=== PATIENT | female | born 1990 | race Caucasian/White ===

== ENCOUNTER 2017-12-24 10:40 | Emergency (ER) | payer OTHER ==
[~2017-12-24] VITALS: Ht 152.4 cm; Wt 72.0 kg
--- NOTE | 2017-12-24 11:20 | PD ---
HPI Chief Complaint Abdominal cramping Date Seen: December 24, 2017 Travel History International Travel<30 Days: No Contact w/Intl Traveler<30Days: No Known Affected Area: No History of Present Illness HPI The patient is a pleasant 27 year old at 20/6 weeks gestation presents to OB triage due to lower abdominal cramping. The patient states her cramping pain began this morning dm. 07:00. She states she took tylenol, placed a heating pad on her abdomen, and took a hot shower however her cramping pain did not improve. She states she felt her pain increased to a 10/10 and she was advised to go to the OB ED for evaluation. The patient reports being ill with viral URI symptoms over the weekend. She states those symptoms are improving however still has a cough. She denies any recent fevers. The patient denies any sharp abdominal pain. Reports the cramping pain is intermittent. She denies it feeling as typical contractions. She denies leakage or gush of fluid. Denies abnormal vaginal discharge. Denies bleeding or spotting. Endorses +FM. Denies urinary complaints; denies dysuria, pyuria, gross hematuria. Denies sharp or new back pain. Denies diarrhea, constipation, nausea or vomiting. Para: 1 : 3 Miscarriage: 1 History Past Medical History Narrative Medical Reportedly healthy Obstetric History Obstetric History One previous early miscarriage One previous term cesarian Past Surgical History Narrative Surgical x1 Family History Family History: Negative Social History Alcohol Use: No Tobacco Use: No Substance Abuse: No Allergies-Medications (Allergen,Severity, Reaction): Coded Allergies: No Known Allergies (Verified Allergy, Unknown, 12/24/17) Home Meds Active Scripts Acetaminophen-Codeine (Tylenol-Codeine #3) 300-30 mg Tab, 1 TAB PO Q6H Y for PAIN, #12 TAB 0 Refills Prov:Toñito Le MD R2 12/24/17 Reported Medications Vit,Calc76/Iron/Folic (Pnv 29-1 Tablet) 29 Mg Iron-1 Mg Tablet, 1 TAB PO campos 12/24/17 Review of Systems Except as stated in HPI: all other systems reviewed are Neg Physical Exam Narrative GENERAL: Well-nourished, well-developed patient. SKIN: Warm and dry. HEAD: Normocephalic and atraumatic. EYES: No scleral icterus. No injection or drainage. ENT: No nasal drainage noted. Mucous membranes pink. Airway patent. NECK: Supple, trachea midline. No JVD. CARDIOVASCULAR: Regular rate and rhythm without murmurs, gallops, or rubs. RESPIRATORY: Breath sounds equal bilaterally. No accessory muscle use. ABDOMEN/GI: Abdomen soft, nontender throughout, bowel sounds present, no rebound tenderness, no guarding Gravid to 21 weeks size GENITOURINARY: External Genitalia: intact and normal in appearance Cervix: [-] Dilatation: closed Effacement: thick Station: -3 Presentation: [-] Membranes: [-] Uterine Contractions: no contractions on tocometer FHT's: Category: [-] Baseline: 140s Reactive: [-] Variability: moderate Decels: [-] EXTREMITIES: No cyanosis or edema. BACK: Nontender without obvious deformity. No CVA tenderness. NEUROLOGICAL: Awake and alert. Motor and sensory grossly within normal limits. Normal speech. Data Data Vital Signs Reviewed: Yes [facility] Medical Record Reviewed: Yes Plan 27 year old at 20/6 weeks gestation being evaluated due to lower abdominal cramping pain. - Consider pain due to round ligament pain, soft tissue strain, blood pressure is within normal limits, exam not suspicious for appendicitis or other concerning intraabdominal etiology - No report of vaginal bleeding - Urine dip is normal - Patient given Demerol 50 mg IM as well as Phenergan 25 mg IM with improvement of her pain however patient was still concerned that her pain had not subsided - CBC and CMP within normal limits - Patient given additional 25 mcg IV fentanyl with improvement of her pain to a 2-3/10 - No contractions on tocometer - Will admit to observation for continued monitoring - Keep NPO until pain is further improved markw Dr. Fulton Diagnosis Diagnosis: Primary Impression: Round ligament pain Toñito Le MD R2 December 24, 2017 11:20
[2017-12-24] MEDS ORDERED: PROMETHAZINE INJ 25 MG/ML VIAL IM ONE (11:30)
[2017-12-24] MEDS ORDERED: MEPERIDINE HCL 50 MG/ML VIAL IM ONE (11:30)
[2017-12-24] MEDS ORDERED: LACTATED RINGER'S 1000 ML INJ 1,000 ML IV ONE (12:15)
[2017-12-24] MEDS ORDERED: PREN1TAB45 PO (12:37)
[2017-12-24 12:55] LABS: AUTOMATED NEUTROPHIL # 8.3 TH/MM3 (1.8-7.7); BASOPHIL % 0.1 % (0.0-2.0); EOSINOPHIL # 0.1 TH/MM3 (0-0.4); EOSINOPHIL % 0.8 % (0.0-4.0); HEMATOCRIT 35.5 % (35.0-46.0); HEMOGLOBIN 12.2 GM/DL (11.6-15.3); LYMPH % 8.5 % (9.0-44.0); LYMPHOCYTE # 0.8 TH/MM3 (1.0-4.8); MEAN CELL VOLUME 90.7 FL (80.0-100.0); MEAN CORPUSCULAR HEMOGLOBIN 31.1 PG (27.0-34.0); MEAN CORPUSCULAR HGB CONC 34.3 % (32.0-36.0); MEAN PLATELET VOLUME 9.1 FL (7.0-11.0); MONO % 4.5 % (0.0-8.0); MONOCYTE # 0.4 TH/MM3 (0-0.9); NEUT % 86.1 % (16.0-70.0); PLATELET COUNT 157 TH/MM3 (150-450); RED BLOOD COUNT 3.92 MIL/MM3 (4.00-5.30); RED CELL DISTRIBUTION WIDTH 13.6 % (11.6-17.2); WHITE BLOOD COUNT 9.7 TH/MM3 (4.0-11.0)
[2017-12-24 13:08] LABS: ALBUMIN 3.1 GM/DL (3.4-5.0); ALT (GPT) 17 U/L (10-53); AST (GOT) 9 U/L (15-37); BICARBONATE 25.6 MEQ/L (21.0-32.0); BLOOD UREA NITROGEN 8 MG/DL (7-18); CALCIUM 8.7 MG/DL (8.5-10.1); CHLORIDE 105 MEQ/L (98-107); GLOMERULAR FILTRATION RATE 148 ML/MIN (>89); GLUCOSE,RANDOM 80 MG/DL (74-106); SODIUM (NA) 140 MEQ/L (136-145)
[2017-12-24 13:10] LABS: ALKALINE PHOSPHATASE 58 U/L (45-117); TOTAL BILIRUBIN ADULT 0.2 MG/DL (0.2-1.0); TOTAL PROTEIN 6.6 GM/DL (6.4-8.2)
[2017-12-24] MEDS ORDERED: TYLETAB34 PO (13:47)
[2017-12-24] MEDS ORDERED: ONDANSETRON ODT 4 MG TAB PO PRN ×2 (14:00→18:15)
[2017-12-24] MEDS ORDERED: ACETAMINOPHEN 325 MG TAB PO PRN (14:00)
[2017-12-24] MEDS ORDERED: SODIUM CHLORIDE 0.9% FLUSH 10 ML FLUSH IV FLUSH PRN (14:00)
[2017-12-24] MEDS: SODIUM CHLORIDE 0.9% FLUSH 10 ML FLUSH IV FLUSH SCH ×2 (14:00→21:06)
[2017-12-24] MEDS ORDERED: CALCIUM CARBONATE 500 MG CHEWABLE TAB CHEW PRN (15:15)
[2017-12-24 15:37] LABS: BILIRUBIN, URINE NEG (NEG); BLOOD, URINE NEG (NEG); GLUCOSE,URINE NEG (NEG); KETONE, URINE NEG (NEG); NITRITE,URINE NEG (NEG); PH, URINE 6.5 (5.0-8.5); URINE COLOR YELLOW (YELLW/STRAW); URINE LEUKOCYTE ESTERASE NEG (NEG)
[2017-12-24 15:49] LABS: SQUAMOUS EPITHELIAL CELL URINE 4 /hpf (0-5)
[2017-12-24] MEDS ORDERED: LORazepam 2 MG/ML VIAL IV ONE (17:15)
--- NOTE | 2017-12-24 18:11 | PD.OB.ANTE ---
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 27 yo at 20 and 6/7 weeks. History of prior term section. No fever, chills, Pain doesn't radiate except to back if cramp severe. Vomited during initial evaluation and just now. No diarrhea Did have normal bowel movement in last hour. Cannot attach pain to any activity, lessens in left semi-orta position. Objective Lab & Micro Results Test 12/24/17 12:13 12/24/17 13:00 White Blood Count 9.7 TH/MM3 Red Blood Count 3.92 MIL/MM3 Hemoglobin 12.2 GM/DL Hematocrit 35.5 % Mean Corpuscular Volume 90.7 FL Mean Corpuscular Hemoglobin 31.1 PG Mean Corpuscular Hemoglobin Concent 34.3 % Red Cell Distribution Width 13.6 % Platelet Count 157 TH/MM3 Mean Platelet Volume 9.1 FL Neutrophils (%) (Auto) 86.1 % Lymphocytes (%) (Auto) 8.5 % Monocytes (%) (Auto) 4.5 % Eosinophils (%) (Auto) 0.8 % Basophils (%) (Auto) 0.1 % Neutrophils # (Auto) 8.3 TH/MM3 Lymphocytes # (Auto) 0.8 TH/MM3 Monocytes # (Auto) 0.4 TH/MM3 Eosinophils # (Auto) 0.1 TH/MM3 Basophils # (Auto) 0.0 TH/MM3 CBC Comment DIFF FINAL Differential Comment Blood Urea Nitrogen 8 MG/DL Creatinine 0.50 MG/DL Random Glucose 80 MG/DL Total Protein 6.6 GM/DL Albumin 3.1 GM/DL Calcium Level 8.7 MG/DL Alkaline Phosphatase 58 U/L Aspartate Amino Transf (AST/SGOT) 9 U/L Alanine Aminotransferase (ALT/SGPT) 17 U/L Total Bilirubin 0.2 MG/DL Sodium Level 140 MEQ/L Potassium Level 3.7 MEQ/L Chloride Level 105 MEQ/L Carbon Dioxide Level 25.6 MEQ/L Anion Gap 9 MEQ/L Estimat Glomerular Filtration Rate 148 ML/MIN Urine Color YELLOW Urine Turbidity CLEAR Urine pH 6.5 Urine Specific [place] 1.021 Urine Protein NEG mg/dL Urine Glucose (UA) NEG mg/dL Urine Ketones NEG mg/dL Urine Occult Blood NEG Urine Nitrite NEG Urine Bilirubin NEG Urine Urobilinogen 0.2 MG/DL Urine Leukocyte Esterase NEG Urine RBC 1 /hpf Urine WBC 1 /hpf Urine Squamous Epithelial Cells 4 /hpf Microscopic Urinalysis Comment CULT NOT INDICATED Urine Opiates Screen NEG Urine Barbiturates Screen NEG Urine Amphetamines Screen NEG Urine Benzodiazepines Screen NEG Urine Cocaine Screen NEG Urine Cannabinoids Screen NEG Chlamydia trachomatis DNA (PCR) NOT DETECTED Neisseria gonorrhoeae DNA (PCR) NOT DETECTED Physical Exam GENERAL: Well-nourished, well-developed patient. CARDIOVASCULAR: Regular rate and rhythm without murmurs, gallops, or rubs. RESPIRATORY: Breath sounds equal bilaterally. No accessory muscle use. ABDOMEN/GI: Abdomen soft, non-tender. Fundus: at umbilicus GENITOURINARY: External Genitalia: intact and normal in appearance FHTs 140s EXTREMITIES: No cyanosis or edema, non-tender, without signs of DVT. Assessment and Plan Assessment and Plan ultrasound appropriate for gestational age posterior placenta good fluid and tone Impression: severe mid abdominal (not quite mid epigastric pain) with emesis has been given fentanyl, ativan, demerol and phenergan unlikely to be gall bladder, appendix or renal stone does have left shift possible gastro enteritis possible scar from prior section pulling on anterior abdominal wall PLAN Manage pain tonight -- can use NSAIDS at this age repeat CBC with diff in am emperic antibiotic for possible GI bug (likely viral but could be listeria, campylobacter...) Razia Martinez MD December 24, 2017 18:11
[2017-12-24] MEDS ORDERED: KETOROLAC TROMETHAMINE 30 MG/ML (IVP) VIAL IV PUSH PRN (18:15)
[2017-12-24] MEDS ORDERED: ACETAMINOPHEN 1000 MG/100 ML 100 ML IV ONE (18:15)
[2017-12-24] MEDS: metroNIDAZOLE 500 MG TAB PO SCH (22:02)
[2017-12-25 05:53] LABS: AUTOMATED NEUTROPHIL # 4.7 TH/MM3 (1.8-7.7); BASOPHIL % 0.1 % (0.0-2.0); EOSINOPHIL # 0.1 TH/MM3 (0-0.4); EOSINOPHIL % 0.9 % (0.0-4.0); HEMATOCRIT 30.5 % (35.0-46.0); HEMOGLOBIN 10.8 GM/DL (11.6-15.3); LYMPH % 12.3 % (9.0-44.0); LYMPHOCYTE # 0.7 TH/MM3 (1.0-4.8); MEAN CELL VOLUME 90.3 FL (80.0-100.0); MEAN CORPUSCULAR HGB CONC 35.4 % (32.0-36.0); MEAN PLATELET VOLUME 9.3 FL (7.0-11.0); MONO % 5.4 % (0.0-8.0); MONOCYTE # 0.3 TH/MM3 (0-0.9); NEUT % 81.3 % (16.0-70.0); PLATELET COUNT 145 TH/MM3 (150-450); RED BLOOD COUNT 3.37 MIL/MM3 (4.00-5.30); RED CELL DISTRIBUTION WIDTH 13.2 % (11.6-17.2); WHITE BLOOD COUNT 5.7 TH/MM3 (4.0-11.0)
[2017-12-25] MEDS: metroNIDAZOLE 500 MG TAB PO SCH (06:15)
--- NOTE | 2017-12-25 08:12 | PD.OB.ANTE ---
Subjective Interval History 27 yo at 21 weeks here for symptoms of severe mid abdominal pain, intractable yesterday with emesis and completely resolved this am. no fever, chills no diarrhea Objective Lab & Micro Results Test 12/24/17 12:13 12/24/17 13:00 12/25/17 05:03 White Blood Count 9.7 TH/MM3 5.7 TH/MM3 Red Blood Count 3.92 MIL/MM3 3.37 MIL/MM3 Hemoglobin 12.2 GM/DL 10.8 GM/DL Hematocrit 35.5 % 30.5 % Mean Corpuscular Volume 90.7 FL 90.3 FL Mean Corpuscular Hemoglobin 31.1 PG 32.0 PG Mean Corpuscular Hemoglobin Concent 34.3 % 35.4 % Red Cell Distribution Width 13.6 % 13.2 % Platelet Count 157 TH/MM3 145 TH/MM3 Mean Platelet Volume 9.1 FL 9.3 FL Neutrophils (%) (Auto) 86.1 % 81.3 % Lymphocytes (%) (Auto) 8.5 % 12.3 % Monocytes (%) (Auto) 4.5 % 5.4 % Eosinophils (%) (Auto) 0.8 % 0.9 % Basophils (%) (Auto) 0.1 % 0.1 % Neutrophils # (Auto) 8.3 TH/MM3 4.7 TH/MM3 Lymphocytes # (Auto) 0.8 TH/MM3 0.7 TH/MM3 Monocytes # (Auto) 0.4 TH/MM3 0.3 TH/MM3 Eosinophils # (Auto) 0.1 TH/MM3 0.1 TH/MM3 Basophils # (Auto) 0.0 TH/MM3 0.0 TH/MM3 CBC Comment DIFF FINAL DIFF FINAL Differential Comment Blood Urea Nitrogen 8 MG/DL Creatinine 0.50 MG/DL Random Glucose 80 MG/DL Total Protein 6.6 GM/DL Albumin 3.1 GM/DL Calcium Level 8.7 MG/DL Alkaline Phosphatase 58 U/L Aspartate Amino Transf (AST/SGOT) 9 U/L Alanine Aminotransferase (ALT/SGPT) 17 U/L Total Bilirubin 0.2 MG/DL Sodium Level 140 MEQ/L Potassium Level 3.7 MEQ/L Chloride Level 105 MEQ/L Carbon Dioxide Level 25.6 MEQ/L Anion Gap 9 MEQ/L Estimat Glomerular Filtration Rate 148 ML/MIN Urine Color YELLOW Urine Turbidity CLEAR Urine pH 6.5 Urine Specific [place] 1.021 Urine Protein NEG mg/dL Urine Glucose (UA) NEG mg/dL Urine Ketones NEG mg/dL Urine Occult Blood NEG Urine Nitrite NEG Urine Bilirubin NEG Urine Urobilinogen 0.2 MG/DL Urine Leukocyte Esterase NEG Urine RBC 1 /hpf Urine WBC 1 /hpf Urine Squamous Epithelial Cells 4 /hpf Microscopic Urinalysis Comment CULT NOT INDICATED Urine Opiates Screen NEG Urine Barbiturates Screen NEG Urine Amphetamines Screen NEG Urine Benzodiazepines Screen NEG Urine Cocaine Screen NEG Urine Cannabinoids Screen NEG Chlamydia trachomatis DNA (PCR) NOT DETECTED Neisseria gonorrhoeae DNA (PCR) NOT DETECTED Physical Exam GENERAL: Well-nourished, well-developed patient. CARDIOVASCULAR: Regular rate and rhythm without murmurs, gallops, or rubs. RESPIRATORY: Breath sounds equal bilaterally. No accessory muscle use. ABDOMEN/GI: Abdomen soft, non-tender. Fundus:20 GENITOURINARY: External Genitalia: intact and normal in appearance FHT's: 140s EXTREMITIES: No cyanosis or edema, non-tender, without signs of DVT. Assessment and Plan Assessment and Plan ultrasound appropriate for gestational age posterior placenta good fluid and tone Impression: severe mid abdominal (not quite mid epigastric pain) with emesis has been given fentanyl, ativan, demerol and phenergan unlikely to be gall bladder, appendix or renal stone does have left shift possible gastro enteritis possible scar from prior section pulling on anterior abdominal wall PLAN Manage pain tonight -- can use NSAIDS at this age repeat CBC with diff in am emperic antibiotic for possible GI bug (likely viral but could be listeria, campylobacter...) 12/24/17 symptomology resolved, speaks against appendicitis, GB or other dangerous condition likely GI and transient home with no medications follow up in office this week Razia Martinez MD December 25, 2017 08:12
--- NOTE | 2017-12-25 08:13 | HHI.DCPOC ---
Discharge Care Plan Report Symptoms to Your Doctor -Temperature above 100.5 degrees -Redness, of incision or excessive or foul smelling drainage -Unusual pain or calf pain -Increased vaginal bleeding -Painful or difficulty urinating -Feelings of extreme sadness or anxiety after 2 weeks Goals to Promote Your Health * To prevent worsening of your condition and complications * To maintain your health at the optimal level Directions to Meet Your Goals Take your medications as prescribed Follow your dietary instruction Follow activity as directed Ensure plenty of rest for recovery Drink fluids for hydration Keep your appointments as scheduled Take your immunizations and boosters as scheduled If your symptoms worsen call your PCP, if no PCP go to Urgent Care Center or Emergency Room Smoking is Dangerous to Your Health. Avoid second hand smoke Call the 24-hour crisis hotline for domestic abuse at Razia Martinez MD December 25, 2017 08:13
[2017-12-25] MEDS ORDERED: MULTIVIT/MIN/PREN/FOL AC/IRON PRENATAL TAB PO SCH (09:00)
== END 2017-12-25 10:28 | disposition home or self-care (01) ==
LOC: HOBED 10:40 → H2EA 13:57
PROVIDERS: ADMIT Obstetrics & Gynecology; ATTEND Obstetrics & Gynecology
DX: O26.892 Other specified pregnancy related conditions, second trimester (principal); R10.2 Pelvic and perineal pain; R05 Cough; Z3A.20 20 weeks gestation of pregnancy
CPT/HCPCS: 76805; 80053; 80307; 81001; 85025; 87491; 87591; 96374; 96375; 99285; G0378; G0481; J0131; J1885; J2060; J2175; J2550; J3010; J7120

== ENCOUNTER 2018-04-29 09:30 | Inpatient (IN) ==
[2018-04-29] MEDS ORDERED: Sodium Chlor 0.9% Inj 500 ML IV.SIG PRN (11:04)
[2018-04-29] MEDS ORDERED: Naloxone Inj 0.4 MG/ML Vial IV.PUSH PRN (11:04)
[2018-04-29] MEDS ORDERED: fentaNYL Citrate Inj 100 MCG/2 ML Ampul IV.PUSH PRN ×2 (11:04)
[2018-04-29] MEDS ORDERED: Sod Chloride 0.9% Inj 1,000 ML IV.CONT PRN (11:04)
[2018-04-29] MEDS ORDERED: Citric Acid/Sodium Citrate Liq 30 ML UDC PO SCH (11:15)
[2018-04-29] MEDS ORDERED: Oxytocin 30 Units/500ml Premix 30 UNITS/500 ML BAG IV.SIG ONE (11:30)
[2018-04-29] MEDS ORDERED: Oxytocin 30 Units/500ml Premix 30 UNITS/500 ML BAG IV.SIG PRN (12:30)
[2018-04-29 12:42] LABS: Baso % (Auto) 0.1 % (0.0-2.0); Eos # (Auto) 0.1 th/mm3 (0.0-0.4); Eos % (Auto) 0.9 % (0.0-4.0); Hematocrit 32.4 % (35.0-46.0); Hemoglobin 10.7 gm/dL (11.6-15.3); Lymph % (Auto) 15.7 % (9.0-44.0); Mean Corpuscular HGB Conc 33.1 % (32.0-36.0); Mean Corpuscular Volume 84.5 fL (80.0-100.0); Mean Platelet Volume 10.2 fL (7.0-11.0); Mono # (Auto) 0.4 th/mm3 (0.0-0.9); Mono % (Auto) 6.5 % (0.0-8.0); Neut # (Auto) 5.1 th/mm3 (1.8-7.7); Neut % (Auto) 76.8 % (16.0-70.0); Platelet Count 168 th/mm3 (150-450); Red Blood Count 3.83 mil/mm3 (4.00-5.30); White Blood Count 6.7 th/mm3 (4.0-11.0)
[2018-04-29 13:00] LABS: Bacteria,Urine Occasional /hpf; Bilirubin,Urine Negative (Negative); Color,Urine Yellow (Yellw/Straw); Glucose,Urine (UA) Negative (Negative); Leukocyte Esterase,Urine Moderate (Negative); Mucus,Urine Few /lpf (Occasional); Nitrite,Urine Negative (Negative); Specific Gravity,Urine 1.023 (1.002-1.035); Squamous Epithelial Cell,Urine 25 /hpf (0-5)
[2018-04-29 13:05] LABS: Clarity,Urine Hazy (Clear)
[2018-04-29 13:10] LABS: Amphetamine Urine With Conf Neg (Neg); Benzodiazepine Urine With Conf Neg (Neg)
[2018-04-29 13:21] LABS: Alanine Aminotransferase 22 U/L (10-53); Albumin 2.5 g/dL (3.4-5.0); Anion Gap 9 meq/L (5-15); Aspartate Aminotransferase 23 U/L (15-37); Blood Urea Nitrogen 10 mg/dL (7-18); Calcium 8.8 mg/dL (8.5-10.1); Chloride 109 meq/L (98-107); Glomerular Filtration Rate Greater Than 89 mL/min (>89); Glucose,Random 68 mg/dL (74-106); Potassium 4.3 meq/L (3.5-5.1); Sodium 142 meq/L (136-145)
[2018-04-29 13:22] LABS: Alkaline Phosphatase 139 U/L (45-117); Total Protein 6.3 g/dL (6.4-8.2)
[2018-04-29] MEDS ORDERED: Acetaminophen 325 MG Tablet PO PRN (15:53)
[2018-04-29] MEDS ORDERED: fentaNYL 2MCG-Bupiv 0.125% Epi 150 ML EPIDURAL ONE (20:41)
[2018-04-29] MEDS ORDERED: Lidocaaine 1.5%/Epinephrine 1:200,000 PF Inj 5 ML Amp ONE (20:44)
[2018-04-29] MEDS ORDERED: Lidocaine PF 1% Inj 5 ML Vial ONE (20:45)
--- NOTE | 2018-04-29 21:14 | P.HPOB ---
History of Present Illness Service: labor and delivery Primary Care Physician: No Primary Care Physician Chief Complaint: getational hypertension at 38 6/7 weeks History of Present Illness: 27 yo mwf at 38 6/7 weeks EGA, seen in office today. BP 148/82 1+ protein and significant edema both dependent and nondependent. No LOPEZ, nausea, vomiting or blurred vision. GFM. No leaking or bleeding. Hx of section x 1 18 months ago for elective induction with failure to progress at [facility]. desires TOLAC. Cervix 2-3/50/2 in office. Pelvis clinically adequate. GBS- No PTL, GDM Does have history of mild hypertension. Weeks Gestation:: 39 - Inpatient Certification I certify that the inpatient services were ordered in accordance with Medicare regulations governing the order. This includes certification that hospital inpatient services are reasonable and necessary and in the case of services not specified as inpatient-only under 42 CFR 419.22(n), that they are appropriately provided as inpatient services in accordance to with the 2-midnight benchmark under 43 CFR 412.3(e) Estimated Total Length of Stay (Days): 3 Plans for Post Hospital Care: Home Review of Systems All other systems reviewed negative except as stated in HPI PMFSH - Travel History Recent Travel in the [place] Within the Last 8 Weeks: No Recent Travel Out of the Country Within the Last 8 Weeks: No Medications and Allergies Active Medications: Active Medications Acetaminophen (Tylenol) 650 mg PO Q4H PRN PRN Reason: HEADACHE Last Admin: 04/29/18 16:01 Dose: 650 mg Citric Acid/Sodium Citrate (Sodium Citrate/Citric Acid Liq) 30 ml PO ORNAMENTER HAND [facility] Stop: 05/03/18 11:14 Fentanyl Citrate (Fentanyl Inj) 50 mcg IV.PUSH Q1H PRN PRN Reason: Pain Scale 3 - 5 Fentanyl Citrate (Fentanyl Inj) 100 mcg IV.PUSH Q1H PRN PRN Reason: PAIN SCALE 6 TO 10 Last Admin: 04/29/18 19:56 Dose: 100 mcg Lactated Ringer's (Lr 1000 Ml Inj) 1,000 mls @ 125 mls/hr IV.CONT .Q8H [facility] Last Admin: 04/29/18 11:45 Dose: 125 mls/hr Lactated Ringer's (Lr 1000 Ml Inj) 1,000 mls @ 3,000 mls/hr IV.SIG UNSCH PRN PRN Reason: compromise or epidural Sodium Chloride (Ns Inj) 500 mls @ 1,000 mls/hr IV.SIG UNSCH PRN PRN Reason: SEE LABEL COMMENTS Sodium Chloride (Ns Inj) 1,000 mls @ 100 mls/hr IV.CONT .Q10H PRN PRN Reason: SEE LABEL COMMENTS Oxytocin (Pitocin 30 Units/Ns 500 Ml Premix) 30 units in 500 mls @ 1 mls/hr IV.SIG TITRATE PRN; Protocol PRN Reason: For induction of labor Last Admin: 04/29/18 12:33 Dose: 1 milliunit/min, 1 mls/hr Lidocaine HCl (Xylocaine 1% Inj) 0.1 ml I-DERMAL PRN PRN PRN Reason: For IV start Stop: 05/02/18 11:03 Lidocaine HCl (Xylocaine 1% Inj) 10 ml INFILTRATN PRN PRN PRN Reason: For episiotomy repair Stop: 05/01/18 11:03 Mineral Oil (Muri-Lube Oil) 10 ml TOPICAL PRN PRN PRN Reason: PRN perineal massage Naloxone HCl (Narcan Inj) 0.1 mg IV.PUSH Q2M PRN PRN Reason: for opiate reversal Vit/Calcium/Iron/Folic Ac (Stuartnatal Plus 3) 1 tab PO DAILY KEARA Allergies Allergy/AdvReac Type Severity Reaction Status Date / Time No Known Allergies Allergy Verified 04/29/18 11:30 Home Medications Medication Instructions Recorded Confirmed Type Calcium 500 1 tab PO DAILY 04/29/18 04/29/18 History ferrous sulfate [Iron (ferrous 1 tab PO DAILY 04/29/18 04/29/18 History sulfate)] vit-iron fum-folic ac 1 tab PO DAILY 04/29/18 04/29/18 History [ Vitamin] Exam Vital signs: Vital Signs 04/29/18 10:15 04/29/18 11:56 04/29/18 12:30 Temperature 98.2 F Pulse Rate 72 74 77 Respiratory Rate 18 18 Blood Pressure 116/77 123/70 121/72 04/29/18 13:03 04/29/18 13:25 04/29/18 13:45 Temperature Pulse Rate 69 83 69 Respiratory Rate 18 Blood Pressure 117/72 04/29/18 14:13 04/29/18 14:45 04/29/18 14:50 Temperature 98.2 F Pulse Rate 100 H 62 77 Respiratory Rate 18 Blood Pressure 122/69 124/70 04/29/18 15:10 04/29/18 15:20 04/29/18 15:21 Temperature Pulse Rate 77 86 67 Respiratory Rate 18 Blood Pressure 121/88 131/73 04/29/18 15:25 04/29/18 15:31 04/29/18 15:40 Temperature Pulse Rate 72 78 83 Respiratory Rate Blood Pressure 127/70 04/29/18 15:45 04/29/18 15:55 04/29/18 16:00 Temperature Pulse Rate 74 77 80 Respiratory Rate Blood Pressure 136/87 04/29/18 16:05 04/29/18 16:10 04/29/18 16:57 Temperature Pulse Rate 80 71 Respiratory Rate 18 Blood Pressure 121/71 04/29/18 16:59 04/29/18 17:05 04/29/18 17:10 Temperature Pulse Rate 62 75 Respiratory Rate 18 Blood Pressure 123/73 04/29/18 17:25 04/29/18 17:30 04/29/18 17:49 Temperature Pulse Rate 82 73 90 Respiratory Rate 18 Blood Pressure 121/75 107/80 04/29/18 17:50 04/29/18 17:55 04/29/18 18:10 Temperature Pulse Rate 86 94 H 86 Respiratory Rate Blood Pressure 123/75 04/29/18 18:25 04/29/18 18:31 04/29/18 18:45 Temperature 98.5 F Pulse Rate 74 63 71 Respiratory Rate 18 Blood Pressure 132/76 04/29/18 18:55 04/29/18 19:10 04/29/18 19:40 Temperature Pulse Rate 79 74 69 Respiratory Rate Blood Pressure 126/72 108/56 L 04/29/18 19:45 04/29/18 19:55 04/29/18 19:58 Temperature 98.6 F Pulse Rate 76 71 Respiratory Rate 20 Blood Pressure 04/29/18 20:00 04/29/18 20:30 04/29/18 20:48 Temperature Pulse Rate 70 67 104 H Respiratory Rate Blood Pressure 123/86 126/78 133/81 04/29/18 20:50 04/29/18 20:51 04/29/18 20:55 Temperature Pulse Rate 98 H 77 64 Respiratory Rate Blood Pressure 142/74 H 125/70 04/29/18 21:00 04/29/18 21:01 04/29/18 21:05 Temperature Pulse Rate 65 53 L Respiratory Rate 18 Blood Pressure 122/72 Intake & Output 04/29/18 04/29/18 04/30/18 06:59 18:59 06:59 Weight 86.183 kg Other: Weight On Admission 86.183 kg - Constitutional no acute distress - Routine HEENT Exam Head: Present: normocephalic Eye: Present: PERRL - Routine Neck Exam Present: supple - Routine Respiratory Exam Present: CTA bilaterally - Routine Cardiovascular Exam Present: RRR - Routine Abdominal Exam Present: soft - Routine Extremities Exam Present: edema - Routine Skin Exam Present: intact - Routine Neurological Exam Present: normal reflexes Results - Labs CBC & Chem 7: 04/29/18 11:45 04/29/18 11:45 Labs: Laboratory Results - last 24 hr 04/29/18 04/29/18 04/29/18 11:15 11:15 11:45 WBC 6.7 RBC 3.83 L Hgb 10.7 L Hct 32.4 L MCV 84.5 MCH 28.0 MCHC 33.1 RDW 14.0 Plt Count 168 MPV 10.2 Neut % (Auto) 76.8 H Lymph % (Auto) 15.7 [place] % (Auto) 6.5 Eos % (Auto) 0.9 Baso % (Auto) 0.1 Neut # (Auto) 5.1 Lymph # (Auto) 1.0 [place] # (Auto) 0.4 Eos # (Auto) 0.1 Baso # (Auto) 0.0 WBC Differential . Differential Comment Auto diff final Sodium Potassium Chloride Carbon Dioxide Anion Gap BUN Creatinine Estimated GFR Random Glucose Uric Acid Calcium Total Bilirubin AST ALT Alkaline Phosphatase Total Protein Albumin Urine Color Yellow Urine Clarity Hazy H Urine pH 6.0 Ur Specific [place] 1.023 Urine Protein Negative Urine Glucose (UA) Negative Urine Ketones Negative Urine Occult Blood Negative Urine Nitrate Negative Urine Bilirubin Negative Urine Urobilinogen Less than 2 Ur Leukocyte Esterase Moderate H Urine RBC Less than 1 Urine WBC 3 Ur Squamous Epith Cells 25 Urine Bacteria Occasional H Urine Mucus Few H Micro UA Comment Culture not ind Ur Microscopic Review Not Reportable Urine Culture Comments Culture not ind Urine Opiates Screen Neg Ur Barbiturates Screen Neg Ur Amphetamine Screen Neg U Benzodiazepines Scrn Neg Urine Cocaine Screen Neg U Cannabinoids Screen Neg Blood Type Blood Type Recheck 04/29/18 04/29/18 04/29/18 11:45 11:45 11:45 WBC RBC Hgb Hct MCV MCH MCHC RDW Plt Count MPV Neut % (Auto) Lymph % (Auto) [place] % (Auto) Eos % (Auto) Baso % (Auto) Neut # (Auto) Lymph # (Auto) [place] # (Auto) Eos # (Auto) Baso # (Auto) WBC Differential Differential Comment Sodium 142 Potassium 4.3 Chloride 109 H Carbon Dioxide 24.0 Anion Gap 9 BUN 10 Creatinine 0.55 Estimated GFR Greater than 89 Random Glucose 68 L Uric Acid 6.6 H Calcium 8.8 Total Bilirubin 0.2 AST 23 ALT 22 Alkaline Phosphatase 139 H Total Protein 6.3 L Albumin 2.5 L Urine Color Urine Clarity Urine pH Ur Specific [place] Urine Protein Urine Glucose (UA) Urine Ketones Urine Occult Blood Urine Nitrate Urine Bilirubin Urine Urobilinogen Ur Leukocyte Esterase Urine RBC Urine WBC Ur Squamous Epith Cells Urine Bacteria Urine Mucus Micro UA Comment Ur Microscopic Review Urine Culture Comments Urine Opiates Screen Ur Barbiturates Screen Ur Amphetamine Screen U Benzodiazepines Scrn Urine Cocaine Screen U Cannabinoids Screen Blood Type O Positive Blood Type Recheck Required Group B Strep: Negative Caprini VTE Risk Assessment Caprini VTE Risk Assessment: No/Low Risk (score <= 1) Caprini Risk Assessment Model: Point Value = 1 Point Value = 2 Point Value = 3 Point Value = 5 Age 41-60 Minor surgery BMI > 25 kg/m2 Swollen legs Varicose veins or History of unexplained or recurrent spontaneous Oral contraceptives or hormone replacement Sepsis (< 1 month) Serious lung disease, including pneumonia (< 1 month) Abnormal pulmonary function Acute myocardial infarction Congestive heart failure (< 1 month) History of inflammatory bowel disease Medical patient at bed rest Age 61-74 Arthroscopic surgery Major open surgery (> 45 min) Laparoscopic surgery (> 45 min) Malignancy Confined to bed (> 72 hours) Immobilizing plaster cast Central venous access Age >= 75 History of VTE Family history of VTE Factor V Leiden Prothrombin [id number] Lupus anticoagulant Anticardiolipin antibodies Elevated serum homocysteine Heparin-induced thrombocytopenia Other congenital or acquired thrombophilia Stroke (< 1 month) Elective arthroplasty Hip, pelvis, or leg fracture Acute spinal cord injury (< 1 month) Prophylaxis Regimen: Total Risk Factor Score Risk Level Prophylaxis Regimen 0-1 Low Early ambulation 2 Moderate Order ONE of the following: *Sequential Compression Device (SCD) *Heparin 5000 units SQ BID 3-4 Higher Order ONE of the following medications: *Heparin 5000 units SQ TID *Enoxaparin/Lovenox 40 mg SQ daily (WT < 150 kg, CrCl > 30 mL/min) *Enoxaparin/Lovenox 30 mg SQ daily (WT < 150 kg, CrCl > 10-29 mL/min) *Enoxaparin/Lovenox 30 mg SQ BID (WT < 150 kg, CrCl > 30 mL/min) AND/OR *Sequential Compression Device (SCD) 5 or more Highest Order ONE of the following medications: *Heparin 5000 units SQ TID (Preferred with Epidurals) *Enoxaparin/Lovenox 40 mg SQ daily (WT < 150 kg, CrCl > 30 mL/min) *Enoxaparin/Lovenox 30 mg SQ daily (WT < 150 kg, CrCl > 10-29 mL/min) *Enoxaparin/Lovenox 30 mg SQ BID (WT < 150 kg, CrCl > 30 mL/min) AND *Sequential Compression Device (SCD) Assessment and Plan - Diagnosis (1) 39 weeks gestation of Code(s): Z3A.39 - 39 weeks gestation of Status: Acute (2) Gestational hypertension Code(s): O13.9 - Gestational [-induced] hypertension without significant proteinuria, unspecified trimester Status: Acute (3) Previous delivery affecting Code(s): O34.219 - Maternal care for unspecified type scar from previous delivery Status: Acute - Plan low dose pitocin and AROM epidural as needed anticipate
--- NOTE | 2018-04-29 21:16 | P.OBLABOR ---
Subjective Interval history: having painful contractions and getting fentanyl Objective Vital Signs: Vital Signs - 8 hr 04/29/18 13:25 04/29/18 13:45 04/29/18 14:13 Temperature Pulse Rate 83 69 100 H Respiratory Rate Blood Pressure 122/69 04/29/18 14:45 04/29/18 14:50 04/29/18 15:10 Temperature 98.2 F Pulse Rate 62 77 77 Respiratory Rate 18 Blood Pressure 124/70 121/88 04/29/18 15:20 04/29/18 15:21 04/29/18 15:25 Temperature Pulse Rate 86 67 72 Respiratory Rate 18 Blood Pressure 131/73 04/29/18 15:31 04/29/18 15:40 04/29/18 15:45 Temperature Pulse Rate 78 83 74 Respiratory Rate Blood Pressure 127/70 04/29/18 15:55 04/29/18 16:00 04/29/18 16:05 Temperature Pulse Rate 77 80 Respiratory Rate 18 Blood Pressure 136/87 04/29/18 16:10 04/29/18 16:57 04/29/18 16:59 Temperature Pulse Rate 80 71 Respiratory Rate 18 Blood Pressure 121/71 04/29/18 17:05 04/29/18 17:10 04/29/18 17:25 Temperature Pulse Rate 62 75 82 Respiratory Rate Blood Pressure 123/73 04/29/18 17:30 04/29/18 17:49 04/29/18 17:50 Temperature Pulse Rate 73 90 86 Respiratory Rate 18 Blood Pressure 121/75 107/80 04/29/18 17:55 04/29/18 18:10 04/29/18 18:25 Temperature 98.5 F Pulse Rate 94 H 86 74 Respiratory Rate 18 Blood Pressure 123/75 04/29/18 18:31 04/29/18 18:45 04/29/18 18:55 Temperature Pulse Rate 63 71 79 Respiratory Rate Blood Pressure 132/76 04/29/18 19:10 04/29/18 19:40 04/29/18 19:45 Temperature 98.6 F Pulse Rate 74 69 76 Respiratory Rate Blood Pressure 126/72 108/56 L 04/29/18 19:55 04/29/18 19:58 04/29/18 20:00 Temperature Pulse Rate 71 70 Respiratory Rate 20 Blood Pressure 123/86 04/29/18 20:30 04/29/18 20:48 04/29/18 20:50 Temperature Pulse Rate 67 104 H 98 H Respiratory Rate Blood Pressure 126/78 133/81 04/29/18 20:51 04/29/18 20:55 04/29/18 21:00 Temperature Pulse Rate 77 64 65 Respiratory Rate Blood Pressure 142/74 H 125/70 04/29/18 21:01 04/29/18 21:05 Temperature Pulse Rate 53 L 63 Respiratory Rate 18 Blood Pressure 122/72 123/74 Objective: strip reactive contractions mild to palpation AROM clear /-2 Patient Started Active Labor: No Medical Induction of Labor: Yes Artificial Rupture of Membrane: Yes Artificial ROM Date: 04/29/18 Artificial ROM Time: 20:00 Assessment and Plan - Diagnosis (1) 39 weeks gestation of Code(s): Z3A.39 - 39 weeks gestation of Status: Acute (2) Gestational hypertension Code(s): O13.9 - Gestational [-induced] hypertension without significant proteinuria, unspecified trimester Status: Acute (3) Previous delivery affecting Code(s): O34.219 - Maternal care for unspecified type scar from previous delivery Status: Acute - Plan low dose pitocin and AROM epidural as needed anticipate
[2018-04-29] MEDS ORDERED: fentaNYL Citrate Inj 100 MCG/2 ML Ampul EPIDURAL ONE (21:19)
[2018-04-29] MEDS: fentaNYL 2MCG-Bupiv 0.125% Epi 150 ML EPIDURAL PRN (22:16)
[2018-04-30] MEDS ORDERED: Lidocaaine 1.5%/Epinephrine 1:200,000 PF Inj 5 ML Amp ONE ×2 (03:29→07:50)
[2018-04-30] MEDS: fentaNYL 2MCG-Bupiv 0.125% Epi 150 ML EPIDURAL PRN (07:09)
[2018-04-30] MEDS ORDERED: Lidocaine PF 1% Inj 5 ML Vial ONE (07:50)
--- NOTE | 2018-04-30 08:22 | P.OBLABOR ---
Subjective Interval history: very painful with contractions strip reactive Objective Vital Signs: Vital Signs - 8 hr 04/30/18 00:25 04/30/18 00:30 04/30/18 00:35 Temperature Pulse Rate 69 76 71 Respiratory Rate Blood Pressure 112/68 04/30/18 00:40 04/30/18 00:55 04/30/18 01:20 Temperature 98.0 F Pulse Rate 71 75 71 Respiratory Rate 18 Blood Pressure 139/90 127/77 04/30/18 01:30 04/30/18 01:46 04/30/18 02:01 Temperature Pulse Rate 65 68 75 Respiratory Rate Blood Pressure 133/75 131/92 H 122/83 04/30/18 02:28 04/30/18 02:31 04/30/18 02:46 Temperature Pulse Rate 61 61 80 Respiratory Rate 20 Blood Pressure 126/79 114/60 123/74 04/30/18 03:00 04/30/18 03:16 04/30/18 03:21 Temperature Pulse Rate 69 82 Respiratory Rate 20 Blood Pressure 140/83 125/59 L 04/30/18 03:31 04/30/18 03:45 04/30/18 04:01 Temperature 98.2 F Pulse Rate 67 77 80 Respiratory Rate 19 Blood Pressure 111/67 113/85 116/63 04/30/18 04:16 04/30/18 04:30 04/30/18 04:45 Temperature Pulse Rate 73 76 Respiratory Rate Blood Pressure 116/77 116/63 113/61 04/30/18 05:30 04/30/18 06:00 04/30/18 06:06 Temperature 98.4 F Pulse Rate 78 73 Respiratory Rate 16 Blood Pressure 111/62 116/64 04/30/18 06:31 04/30/18 07:00 04/30/18 07:03 Temperature Pulse Rate 73 58 L Respiratory Rate 18 Blood Pressure 120/64 131/77 04/30/18 07:06 04/30/18 07:31 04/30/18 08:01 Temperature 98.1 F Pulse Rate 85 84 Respiratory Rate Blood Pressure 144/71 H 143/79 H 04/30/18 08:05 04/30/18 08:06 Temperature Pulse Rate 80 74 Respiratory Rate Blood Pressure 128/62 Objective: rim of cervix reducible strip category one IUPC removed Assessment and Plan - Diagnosis (1) 39 weeks gestation of Code(s): Z3A.39 - 39 weeks gestation of Status: Acute (2) Gestational hypertension Code(s): O13.9 - Gestational [-induced] hypertension without significant proteinuria, unspecified trimester Status: Acute (3) Previous delivery affecting Code(s): O34.219 - Maternal care for unspecified type scar from previous delivery Status: Acute - Plan low dose pitocin and AROM epidural as needed anticipate 04/30/18 7:30 revise epidural and begin pushing pain not likely a uterine scar event as strip reassuring and IUPC was recording contractions anticipate () soon.
[2018-04-30] MEDS: Prenatal Vit/Ca/Iron/Folic Acid Tablet PO SCH (09:35)
[2018-04-30] MEDS ORDERED: ceFAZolin 2 GM IV; once IV.SIG ONE (11:00)
[2018-04-30] MEDS ORDERED: Acetaminophen 650 MG Supp RECTAL ONE (11:00)
[2018-04-30] MEDS ORDERED: Lidocaine 1% Inj 50 ML Vial ONE (11:50)
[2018-04-30 12:19] LABS: Cord Arterial Blood HCO3 19.7
[2018-04-30] MEDS ORDERED: Acetaminophen 325 MG Tablet PO PRN (12:36)
[2018-04-30] MEDS ORDERED: Naloxone Inj 0.4 MG/ML Vial IV.PUSH PRN (12:36)
[2018-04-30] MEDS ORDERED: Oxytocin 30 Units/500ml Premix 30 UNITS/500 ML BAG IV.CONT PRN (12:36)
[2018-04-30] MEDS ORDERED: Witch Hazel 50%/Glyderin 12.5% 40 Pad Jar RECTAL PRN (12:36)
[2018-04-30] MEDS ORDERED: Bisacodyl 10 MG Supp RECTAL PRN (12:36)
[2018-04-30] MEDS ORDERED: Benzocaine 20% Top Spray 60 ML Can TOPICAL PRN (12:36)
--- NOTE | 2018-04-30 12:36 | P.OBDELI ---
Weeks Gestation: 39 Anesthesia: Epidural, Lidocaine local to perineum Episiotomy: none Vaginal Delivery: Forceps, Presentation: Occiput anterior Nuchal Cord: None Delayed Cord Clamping (45 sec): Yes Shoulder Dystocia: Suprapubic pressure given, Christi maneuver done Placenta: Spontaneous delivery, Intact, Uterus explored +, 3 vessel cord, Cord pH Laceration: Vaginal Repair: Chromic interrupted, Vicryl interrupted Estimated blood loss (mL): 500 Infant: Female Infant Female A Delivery Date: 04/30/18 score (1 min): 8 score (5 min): 9 (full delivery dictated)
[2018-04-30] MEDS ORDERED: Measles/Mumps/Rubella Vaccine Inj 0.5 ML Vial SQ ONE (16:00)
[2018-04-30] MEDS ORDERED: Diphtheria/Tetanus/Pertussis Vaccine Inj 0.5 ML Syringe IM ONE (16:00)
--- NOTE | 2018-04-30 20:31 | P.PNOB ---
Subjective Post day: 0 Interval history: Seen at 6 pm with daughter in post . Nursing. Baby has significant bruising from forceps and therefore at risk from jaundice. Taking to breast well. Radha needing percocet for swelling and vaginal discomfort. No bleeding. Has fischer in place until tomorrow. In good spirits Objective Vital Signs/I&O: Vital Signs 04/29/18 20:30 04/29/18 20:48 04/29/18 20:50 Temperature Pulse Rate 67 104 H 98 H Respiratory Rate Blood Pressure 126/78 133/81 04/29/18 20:51 04/29/18 20:55 04/29/18 21:00 Temperature Pulse Rate 77 64 65 Respiratory Rate Blood Pressure 142/74 H 125/70 04/29/18 21:01 04/29/18 21:05 04/29/18 21:10 Temperature Pulse Rate 53 L 63 71 Respiratory Rate 18 Blood Pressure 122/72 123/74 115/63 04/29/18 21:35 04/29/18 21:39 04/29/18 21:40 Temperature Pulse Rate 71 73 Respiratory Rate 18 Blood Pressure 110/65 04/29/18 21:50 04/29/18 21:55 04/29/18 22:00 Temperature Pulse Rate 59 L 65 65 Respiratory Rate 18 Blood Pressure 118/62 120/69 04/29/18 22:05 04/29/18 22:10 04/29/18 22:15 Temperature Pulse Rate 62 61 63 Respiratory Rate Blood Pressure 116/72 04/29/18 22:20 04/29/18 22:25 04/29/18 22:35 Temperature Pulse Rate 61 56 L 60 Respiratory Rate Blood Pressure 119/75 04/29/18 22:40 04/29/18 22:45 04/29/18 22:50 Temperature Pulse Rate 58 L 77 60 Respiratory Rate Blood Pressure 125/78 04/29/18 22:55 04/29/18 23:10 04/29/18 23:20 Temperature 97.8 F Pulse Rate 67 62 61 Respiratory Rate 18 Blood Pressure 120/66 108/55 L 04/29/18 23:30 04/29/18 23:35 04/29/18 23:40 Temperature Pulse Rate 64 61 61 Respiratory Rate Blood Pressure 115/61 04/29/18 23:45 04/29/18 23:50 04/30/18 00:10 Temperature Pulse Rate 60 60 63 Respiratory Rate Blood Pressure 110/60 106/58 L 04/30/18 00:15 04/30/18 00:20 04/30/18 00:25 Temperature Pulse Rate 66 63 69 Respiratory Rate Blood Pressure 107/66 04/30/18 00:30 04/30/18 00:35 04/30/18 00:40 Temperature Pulse Rate 76 71 71 Respiratory Rate Blood Pressure 112/68 04/30/18 00:55 04/30/18 01:20 04/30/18 01:30 Temperature 98.0 F Pulse Rate 75 71 65 Respiratory Rate 18 Blood Pressure 139/90 127/77 133/75 04/30/18 01:46 04/30/18 02:01 04/30/18 02:28 Temperature Pulse Rate 68 75 61 Respiratory Rate 20 Blood Pressure 131/92 H 122/83 126/79 04/30/18 02:31 04/30/18 02:46 04/30/18 03:00 Temperature Pulse Rate 61 80 69 Respiratory Rate Blood Pressure 114/60 123/74 140/83 04/30/18 03:16 04/30/18 03:21 04/30/18 03:31 Temperature 98.2 F Pulse Rate 82 67 Respiratory Rate 20 19 Blood Pressure 125/59 L 111/67 04/30/18 03:45 04/30/18 04:01 04/30/18 04:16 Temperature Pulse Rate 77 80 Respiratory Rate Blood Pressure 113/85 116/63 116/77 04/30/18 04:30 04/30/18 04:45 04/30/18 05:30 Temperature Pulse Rate 73 76 78 Respiratory Rate Blood Pressure 116/63 113/61 111/62 04/30/18 06:00 04/30/18 06:06 04/30/18 06:31 Temperature 98.4 F Pulse Rate 73 73 Respiratory Rate 16 Blood Pressure 116/64 120/64 04/30/18 07:00 04/30/18 07:03 04/30/18 07:06 Temperature 98.1 F Pulse Rate 58 L Respiratory Rate 18 Blood Pressure 131/77 04/30/18 07:31 04/30/18 08:01 04/30/18 08:05 Temperature Pulse Rate 85 84 80 Respiratory Rate Blood Pressure 144/71 H 143/79 H 04/30/18 08:06 04/30/18 08:21 04/30/18 08:26 Temperature Pulse Rate 74 79 75 Respiratory Rate Blood Pressure 128/62 125/75 110/79 04/30/18 08:30 04/30/18 09:01 04/30/18 09:25 Temperature 99.2 F Pulse Rate 70 69 Respiratory Rate 18 18 Blood Pressure 135/85 132/66 04/30/18 09:30 04/30/18 10:01 04/30/18 10:04 Temperature Pulse Rate 69 67 Respiratory Rate 18 Blood Pressure 129/66 146/96 H 04/30/18 10:31 04/30/18 10:38 04/30/18 10:45 Temperature 99.0 F Pulse Rate 81 Respiratory Rate 18 Blood Pressure 123/98 H 04/30/18 11:01 04/30/18 12:37 04/30/18 12:55 Temperature Pulse Rate 137 H 85 90 Respiratory Rate 18 18 Blood Pressure 141/81 H 112/59 L 116/74 04/30/18 13:00 04/30/18 13:14 04/30/18 13:16 Temperature Pulse Rate 77 80 Respiratory Rate 18 Blood Pressure 123/68 124/88 04/30/18 13:30 04/30/18 13:31 04/30/18 14:51 Temperature Pulse Rate 77 Respiratory Rate 18 18 Blood Pressure 112/69 04/30/18 15:15 Temperature 98.9 F Pulse Rate 81 Respiratory Rate 20 Blood Pressure 117/60 Intake & Output 04/30/18 04/30/18 05/01/18 06:59 18:59 06:59 Intake Total 3000 / 3000 Balance 3000 / 3000 Intake: IV 3000 / 3000 LR 1000 mL Inj 1,000 ML @ 125 3000 / 3000 mls/hr IV.CONT .Q8H [facility] Rx#: [id number] Result Diagrams: 04/29/18 11:45 04/29/18 11:45 Objective Remarks: GENERAL: Well-nourished, well-developed patient. CARDIOVASCULAR: Regular rate and rhythm without murmurs, gallops, or rubs. RESPIRATORY: Breath sounds equal bilaterally. No accessory muscle use. ABDOMEN/GI: Abdomen soft, non-tender. Fundus: Uterus difficult to palpate GENITOURINARY: Light lochia. Stable swelling. urine clear EXTREMITIES: No cyanosis or edema, non-tender, without signs of DVT. Medications and IVs: Active Medications Acetaminophen (Tylenol) 650 mg PO Q4H PRN PRN Reason: HEADACHE Last Admin: 04/29/18 16:01 Dose: 650 mg Acetaminophen (Tylenol) 650 mg PO Q4H PRN PRN Reason: PAIN SCALE 1 TO 2 Al Hydroxide/Mg Hydroxide (Milk Of Magnesia Liq) 30 ml PO Q12H PRN PRN Reason: Mild Constipation Benzocaine (Americaine 20% Top [place]) 1 spray TOPICAL Q4H PRN PRN Reason: For Perineum Discomfort Last Admin: 04/30/18 17:44 Dose: 1 spray Bisacodyl (Dulcolax Supp) 10 mg RECTAL DAILY PRN PRN Reason: SEVERE CONSITIPATION Citric Acid/Sodium Citrate (Sodium Citrate/Citric Acid Liq) 30 ml PO [facility]COLOG[facility] SPECIALIST [facility] Stop: 05/03/18 11:14 Last Admin: 04/30/18 01:17 Dose: 30 ml Ephedrine Sulfate (Ephedrine/Ns Syringe) 10 mg IV.PUSH UNSCH PRN PRN Reason: SEE LABEL COMMENTS Stop: 04/30/18 21:19 Fentanyl Citrate (Fentanyl Inj) 50 mcg IV.PUSH Q1H PRN PRN Reason: Pain Scale 3 - 5 Fentanyl Citrate (Fentanyl Inj) 100 mcg IV.PUSH Q1H PRN PRN Reason: PAIN SCALE 6 TO 10 Last Admin: 04/29/18 19:56 Dose: 100 mcg Lactated Ringer's (Lr 1000 Ml Inj) 1,000 mls @ 125 mls/hr IV.CONT .Q8H [facility] Last Admin: 04/30/18 13:36 Dose: Not Given Lactated Ringer's (Lr 1000 Ml Inj) 1,000 mls @ 3,000 mls/hr IV.SIG UNSCH PRN PRN Reason: compromise or epidural Last Admin: 04/30/18 11:25 Dose: 3,000 mls/hr Sodium Chloride (Ns Inj) 500 mls @ 1,000 mls/hr IV.SIG UNSCH PRN PRN Reason: SEE LABEL COMMENTS Sodium Chloride (Ns Inj) 1,000 mls @ 100 mls/hr IV.CONT .Q10H PRN PRN Reason: SEE LABEL COMMENTS Oxytocin (Pitocin 30 Units/Ns 500 Ml Premix) 30 units in 500 mls @ 1 mls/hr IV.SIG TITRATE PRN; Protocol PRN Reason: For induction of labor Last Admin: 04/29/18 12:33 Dose: 1 milliunit/min, 1 mls/hr Fentanyl/Bupivacaine/Sodium Chlor (Fentanyl 2 Mcg-Bupiv 0.125% Epi) 150 mls @ 9 mls/hr EPIDURAL PRN PRN PRN Reason: for Labor Pain Last Admin: 04/30/18 07:09 Dose: 9 mls/hr Oxytocin (Pitocin 30 Units/Ns 500 Ml Premix) 30 units in 500 mls @ 100 mls/hr IV.CONT UNSCH PRN PRN Reason: Heavy bleeding Ibuprofen (Motrin) 800 mg PO Q8H PRN PRN Reason: For Cramping Last Admin: 04/30/18 13:54 Dose: 800 mg Lactulose (Lactulose Liq) 30 ml PO DAILY PRN PRN Reason: SEVERE CONSITIPATION Lidocaine HCl (Xylocaine 1% Inj) 0.1 ml I-DERMAL PRN PRN PRN Reason: For IV start Stop: 05/02/18 11:03 Lidocaine HCl (Xylocaine 1% Inj) 10 ml INFILTRATN PRN PRN PRN Reason: For episiotomy repair Stop: 05/01/18 11:03 Mineral Oil (Muri-Lube Oil) 10 ml TOPICAL PRN PRN PRN Reason: PRN perineal massage Miscellaneous Information (Misc Information) 1 each OTHER UNSCH PRN PRN Reason: SEE LABEL COMMENTS Stop: 04/30/18 21:19 Miscellaneous Information (Misc Information) 1 each OTHER UNSCH PRN PRN Reason: SEE LABEL COMMENTS Stop: 04/30/18 21:19 Naloxone HCl (Narcan Inj) 0.1 mg IV.PUSH Q2M PRN PRN Reason: for opiate reversal Ondansetron HCl (Zofran Inj) 4 mg IV.PUSH Q6H PRN PRN Reason: NAUSEA Ondansetron HCl (Zofran Odt) 4 mg PO Q6H PRN PRN Reason: NAUSEA OR VOMITING Oxycodone/Acetaminophen (Percocet 5/325 Mg) 1 tab PO Q4H PRN PRN Reason: PAIN SCALE 3 TO 5 Oxycodone/Acetaminophen (Percocet 5/325 Mg) 2 tab PO Q4H PRN PRN Reason: PAIN SCALE 6 TO 10 Last Admin: 04/30/18 17:44 Dose: 2 tab Vit/Calcium/Iron/Folic Ac (Stuartnatal Plus 3) 1 tab PO DAILY KEARA Last Admin: 04/30/18 09:35 Dose: Not Given Senna/Docusate Sodium (Yashira-Colace) 1 tab PO BID KEARA Sennosides (Senokot) 17.2 mg PO Q12H PRN PRN Reason: Moderate Constipation Sodium Chloride (Ns Flush) 2 ml IV.FLUSH BID KEARA Sodium Chloride (Ns Flush) 2 ml IV.FLUSH PRN PRN PRN Reason: FLUSH AFTER USING IV ACCESS Witch Donya/Glycerin (Tucks Pads) 1 applicatio RECTAL QID PRN PRN Reason: HEMORRHOIDS Last Admin: 04/30/18 17:44 Dose: 1 applicatio Zolpidem Tartrate (Ambien) 5 mg PO HS PRN PRN Reason: SLEEP Assessment and Plan - Diagnosis (1) 39 weeks gestation of Code(s): Z3A.39 - 39 weeks gestation of Status: Acute (2) Gestational hypertension Code(s): O13.9 - Gestational [-induced] hypertension without significant proteinuria, unspecified trimester Status: Acute (3) Previous delivery affecting Code(s): O34.219 - Maternal care for unspecified type scar from previous delivery Status: Acute - Plan low dose pitocin and AROM epidural as needed anticipate 04/30/18 7:30 revise epidural and begin pushing pain not likely a uterine scar event as strip reassuring and IUPC was recording contractions anticipate () soon. 04/30/18 18:00 stable post difficult low forceps with left sulcus tear repaired. may need ofirmev. encourage stool softeners. explained no perineal compromise--sphincter and rectum all intact and no external stitches. watch infant for jaundice.
[2018-04-30] MEDS ORDERED: Zolpidem Tartrate 5 MG Tablet PO PRN (21:00)
[2018-04-30] MEDS: Senna/Docusate Sodium 8.6/50 MG Tablet PO SCH (22:37)
--- NOTE | 2018-05-01 08:22 | P.PNOB ---
Subjective Post day: 1 Interval history: Doing well, pain controlled, vaginal bleeding slightly greater than her menses, minimal ambulation due to Staley. Objective Vital Signs/I&O: Vital Signs 04/30/18 08:26 04/30/18 08:30 04/30/18 09:01 Temperature Pulse Rate 75 70 Respiratory Rate 18 Blood Pressure 110/79 135/85 04/30/18 09:25 04/30/18 09:30 04/30/18 10:01 Temperature 99.2 F Pulse Rate 69 69 67 Respiratory Rate 18 Blood Pressure 132/66 129/66 146/96 H 04/30/18 10:04 04/30/18 10:31 04/30/18 10:38 Temperature 99.0 F Pulse Rate 81 Respiratory Rate 18 Blood Pressure 123/98 H 04/30/18 10:45 04/30/18 11:01 04/30/18 12:37 Temperature Pulse Rate 137 H 85 Respiratory Rate 18 18 Blood Pressure 141/81 H 112/59 L 04/30/18 12:55 04/30/18 13:00 04/30/18 13:14 Temperature Pulse Rate 90 77 Respiratory Rate 18 18 Blood Pressure 116/74 123/68 04/30/18 13:16 04/30/18 13:30 04/30/18 13:31 Temperature Pulse Rate 80 77 Respiratory Rate 18 Blood Pressure 124/88 112/69 04/30/18 14:51 04/30/18 15:15 04/30/18 20:39 Temperature 98.9 F 98.1 F Pulse Rate 81 81 Respiratory Rate 18 20 18 Blood Pressure 117/60 123/72 05/01/18 08:00 Temperature 98.1 F Pulse Rate 86 Respiratory Rate 18 Blood Pressure 110/65 Result Diagrams: 04/29/18 11:45 04/29/18 11:45 Objective Remarks: GENERAL: Well-nourished, well-developed patient. CARDIOVASCULAR: Regular rate and rhythm without murmurs, gallops, or rubs. RESPIRATORY: Breath sounds equal bilaterally. No accessory muscle use. ABDOMEN/GI: Abdomen soft, non-tender. Fundus: Firm, non-tender at umbilicus. GENITOURINARY: Light to moderate bleeding. EXTREMITIES: No cyanosis or edema, non-tender, without signs of DVT. Medications and IVs: Active Medications Acetaminophen (Tylenol) 650 mg PO Q4H PRN PRN Reason: HEADACHE Last Admin: 04/29/18 16:01 Dose: 650 mg Acetaminophen (Tylenol) 650 mg PO Q4H PRN PRN Reason: PAIN SCALE 1 TO 2 Al Hydroxide/Mg Hydroxide (Milk Of Magnesia Liq) 30 ml PO Q12H PRN PRN Reason: Mild Constipation Benzocaine (Americaine 20% Top [place]) 1 spray TOPICAL Q4H PRN PRN Reason: For Perineum Discomfort Last Admin: 04/30/18 17:44 Dose: 1 spray Bisacodyl (Dulcolax Supp) 10 mg RECTAL DAILY PRN PRN Reason: SEVERE CONSITIPATION Citric Acid/Sodium Citrate (Sodium Citrate/Citric Acid Liq) 30 ml PO [facility] Stop: 05/03/18 11:14 Last Admin: 04/30/18 01:17 Dose: 30 ml Fentanyl Citrate (Fentanyl Inj) 50 mcg IV.PUSH Q1H PRN PRN Reason: Pain Scale 3 - 5 Fentanyl Citrate (Fentanyl Inj) 100 mcg IV.PUSH Q1H PRN PRN Reason: PAIN SCALE 6 TO 10 Last Admin: 04/29/18 19:56 Dose: 100 mcg Lactated Ringer's (Lr 1000 Ml Inj) 1,000 mls @ 125 mls/hr IV.CONT .Q8H [facility] Last Admin: 05/01/18 05:55 Dose: Not Given Lactated Ringer's (Lr 1000 Ml Inj) 1,000 mls @ 3,000 mls/hr IV.SIG UNSCH PRN PRN Reason: compromise or epidural Last Admin: 04/30/18 11:25 Dose: 3,000 mls/hr Sodium Chloride (Ns Inj) 500 mls @ 1,000 mls/hr IV.SIG UNSCH PRN PRN Reason: SEE LABEL COMMENTS Sodium Chloride (Ns Inj) 1,000 mls @ 100 mls/hr IV.CONT .Q10H PRN PRN Reason: SEE LABEL COMMENTS Oxytocin (Pitocin 30 Units/Ns 500 Ml Premix) 30 units in 500 mls @ 1 mls/hr IV.SIG TITRATE PRN; Protocol PRN Reason: For induction of labor Last Admin: 04/29/18 12:33 Dose: 1 milliunit/min, 1 mls/hr Fentanyl/Bupivacaine/Sodium Chlor (Fentanyl 2 Mcg-Bupiv 0.125% Epi) 150 mls @ 9 mls/hr EPIDURAL PRN PRN PRN Reason: for Labor Pain Last Admin: 04/30/18 07:09 Dose: 9 mls/hr Oxytocin (Pitocin 30 Units/Ns 500 Ml Premix) 30 units in 500 mls @ 100 mls/hr IV.CONT UNSCH PRN PRN Reason: Heavy bleeding Ibuprofen (Motrin) 800 mg PO Q8H PRN PRN Reason: For Cramping Last Admin: 04/30/18 22:37 Dose: 800 mg Lactulose (Lactulose Liq) 30 ml PO DAILY PRN PRN Reason: SEVERE CONSITIPATION Lidocaine HCl (Xylocaine 1% Inj) 0.1 ml I-DERMAL PRN PRN PRN Reason: For IV start Stop: 05/02/18 11:03 Lidocaine HCl (Xylocaine 1% Inj) 10 ml INFILTRATN PRN PRN PRN Reason: For episiotomy repair Stop: 05/01/18 11:03 Mineral Oil (Muri-Lube Oil) 10 ml TOPICAL PRN PRN PRN Reason: PRN perineal massage Naloxone HCl (Narcan Inj) 0.1 mg IV.PUSH Q2M PRN PRN Reason: for opiate reversal Ondansetron HCl (Zofran Inj) 4 mg IV.PUSH Q6H PRN PRN Reason: NAUSEA Ondansetron HCl (Zofran Odt) 4 mg PO Q6H PRN PRN Reason: NAUSEA OR VOMITING Oxycodone/Acetaminophen (Percocet 5/325 Mg) 1 tab PO Q4H PRN PRN Reason: PAIN SCALE 3 TO 5 Oxycodone/Acetaminophen (Percocet 5/325 Mg) 2 tab PO Q4H PRN PRN Reason: PAIN SCALE 6 TO 10 Last Admin: 05/01/18 05:49 Dose: 2 tab Vit/Calcium/Iron/Folic Ac (Stuartnatal Plus 3) 1 tab PO DAILY [facility] Last Admin: 04/30/18 09:35 Dose: Not Given Senna/Docusate Sodium (Yashira-Colace) 1 tab PO BID [facility] Last Admin: 04/30/18 22:37 Dose: 1 tab Sennosides (Senokot) 17.2 mg PO Q12H PRN PRN Reason: Moderate Constipation Sodium Chloride (Ns Flush) 2 ml IV.FLUSH BID KEARA Last Admin: 04/30/18 21:00 Dose: 2 ml Sodium Chloride (Ns Flush) 2 ml IV.FLUSH PRN PRN PRN Reason: FLUSH AFTER USING IV ACCESS Witch Donya/Glycerin (Tucks Pads) 1 applicatio RECTAL QID PRN PRN Reason: HEMORRHOIDS Last Admin: 04/30/18 17:44 Dose: 1 applicatio Zolpidem Tartrate (Ambien) 5 mg PO HS PRN PRN Reason: SLEEP Assessment and Plan - Diagnosis (1) 39 weeks gestation of Code(s): Z3A.39 - 39 weeks gestation of Status: Acute (2) Gestational hypertension Code(s): O13.9 - Gestational [-induced] hypertension without significant proteinuria, unspecified trimester Status: Acute (3) Previous delivery affecting Code(s): O34.219 - Maternal care for unspecified type scar from previous delivery Status: Resolved - Plan 27-year-old 002 status post forceps-assisted at 39 weeks. 1. day #1: continue routine care, anticipate discharge home tomorrow.
[2018-05-01] MEDS: Prenatal Vit/Ca/Iron/Folic Acid Tablet PO SCH (09:27)
[2018-05-01] MEDS: Senna/Docusate Sodium 8.6/50 MG Tablet PO SCH ×2 (09:27→20:32)
--- NOTE | 2018-05-01 14:44 | MP ---
cc: Razia Martinez MD DATE OF OPERATION: 04/30/2018 NARRATIVE: This is a narrative of an operative vaginal delivery. Shayy was a trial of labor after prior section who was placed on a low dose Pitocin protocol when she had a favorable cervix and some mildly elevated blood pressures with protein and edema in the office. She came in at about 2 cm and 50% effaced on 04/29/2018 and was started on low-dose Pitocin. She underwent AROM on 04/29/2018 at 7:30 p.m. with clear fluid and had a gradual progression of labor until she was again checked by me at 6:30 a.m. At that point, she had a rim, but she was in extreme discomfort and not getting adequate relief from her epidural. The strip was a category 1. The contractions were being monitored with an IUPC and she was on 9 milliunits of Pitocin. The decision was made to redo her epidural and allow her to rest and bring the baby down. The baby had some variables throughout the morning, but then about 11:00 became very tachycardic with diminished [id number] variability. This was despite a lack of maternal temperature. I came in to evaluate and the baby was in DILEEP position at +1 to +2 station and the fluid was clear. The strip had good lhem-iv-[id number] variability, but was tachycardic in the 180s to 190s. She again was very uncomfortable with the contractions and having difficulty focusing on pushing. She was also quite exhausted. After some spontaneous effort on her own we did apply the vacuum for a total of 3 contractions without any pop-offs; however, the baby was brought to +2 to +3 and her maternal effort was not adequate for the size of the baby and the mild degree of asynclitism that was noted. The decision was made to proceed with an outlet forceps delivery using open shank Simpsons. This was explained to the family. Her cervix was reevaluated to be completely dilated and she had a Staley in place that was removed so her bladder was empty. After a ghost application, the forceps were applied and over a single pull the infant was delivered from DILEEP position. The had some bruising from the forceps, but placement was good and near the left eye. There was a mild shoulder dystocia that was resolved with suprapubic pressure and Christi manuevers. Apgars were 8 at one and 9 at five. Both the cord gas and the weight are still pending. The mom did not have a perineal or external laceration; however, she had a significant left vaginal vault laceration that was repaired with Vicryl 2-0 after she was given some Demerol. A small superficial laceration in the vagina on the right was also repaired. The Staley catheter was replaced. The uterus had been explored and confirmed that the lower uterine segment was intact without any compromise from her prior section. Ice was placed on the perineum and slightly inside the vaginal vault. Mom and baby are together skin to skin at this time and doing well. Estimated blood loss was 500 mL. sponge, instrument and needle count were correct. Razia Martinez MD PPC/ct , 12:34 PM , 12:43 PM [id number]
--- NOTE | 2018-05-02 09:09 | P.PNOB ---
Subjective Post day: 2 Interval history: nursing and pumping discomfort from hemorrhoid otherwise doing well lochia not excessive Objective Vital Signs/I&O: Vital Signs 05/01/18 20:12 Temperature 98.1 F Pulse Rate 106 H Respiratory Rate 20 Blood Pressure 125/73 Result Diagrams: 04/29/18 11:45 04/29/18 11:45 Objective Remarks: GENERAL: Well-nourished, well-developed patient. CARDIOVASCULAR: Regular rate and rhythm without murmurs, gallops, or rubs. RESPIRATORY: Breath sounds equal bilaterally. No accessory muscle use. ABDOMEN/GI: Abdomen soft, non-tender. Fundus: Firm, non-tender at umbilicus. GENITOURINARY: Light to moderate bleeding. EXTREMITIES: No cyanosis or edema, non-tender, without signs of DVT. 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 [facility] Stop: 05/03/18 11:14 Last Admin: 04/30/18 01:17 Dose: 30 ml Fentanyl Citrate (Fentanyl Inj) 50 mcg IV.PUSH Q1H PRN PRN Reason: Pain Scale 3 - 5 Fentanyl Citrate (Fentanyl Inj) 100 mcg IV.PUSH Q1H PRN PRN Reason: PAIN SCALE 6 TO 10 Last Admin: 04/29/18 19:56 Dose: 100 mcg Lactated Ringer's (Lr 1000 Ml Inj) 1,000 mls @ 125 mls/hr IV.CONT .Q8H [facility] Last Admin: 05/01/18 05:55 Dose: Not Given Lactated Ringer's (Lr 1000 Ml Inj) 1,000 mls @ 3,000 mls/hr IV.SIG UNSCH PRN PRN Reason: compromise or epidural Last Admin: 04/30/18 11:25 Dose: 3,000 mls/hr Sodium Chloride (Ns Inj) 500 mls @ 1,000 mls/hr IV.SIG UNSCH PRN PRN Reason: SEE LABEL COMMENTS Sodium Chloride (Ns Inj) 1,000 mls @ 100 mls/hr IV.CONT .Q10H PRN PRN Reason: SEE LABEL COMMENTS Oxytocin (Pitocin 30 Units/Ns 500 Ml Premix) 30 units in 500 mls @ 1 mls/hr IV.SIG TITRATE PRN; Protocol PRN Reason: For induction of labor Last Admin: 04/29/18 12:33 Dose: 1 milliunit/min, 1 mls/hr Fentanyl/Bupivacaine/Sodium Chlor (Fentanyl 2 Mcg-Bupiv 0.125% Epi) 150 mls @ 9 mls/hr EPIDURAL PRN PRN PRN Reason: for Labor Pain Last Admin: 04/30/18 07:09 Dose: 9 mls/hr Oxytocin (Pitocin 30 Units/Ns 500 Ml Premix) 30 units in 500 mls @ 100 mls/hr IV.CONT UNSCH PRN PRN Reason: Heavy bleeding Ibuprofen (Motrin) 800 mg PO Q8H PRN PRN Reason: For Cramping Last Admin: 05/02/18 03:27 Dose: 800 mg Lactulose (Lactulose Liq) 30 ml PO DAILY PRN PRN Reason: SEVERE CONSITIPATION Lidocaine HCl (Xylocaine 1% Inj) 0.1 ml I-DERMAL PRN PRN PRN Reason: For IV start Stop: 05/02/18 11:03 Mineral Oil (Muri-Lube Oil) 10 ml TOPICAL PRN PRN PRN Reason: PRN perineal massage Naloxone HCl (Narcan Inj) 0.1 mg IV.PUSH Q2M PRN PRN Reason: for opiate reversal Ondansetron HCl (Zofran Inj) 4 mg IV.PUSH Q6H PRN PRN Reason: NAUSEA Ondansetron HCl (Zofran Odt) 4 mg PO Q6H PRN PRN Reason: NAUSEA OR VOMITING Oxycodone/Acetaminophen (Percocet 5/325 Mg) 1 tab PO Q4H PRN PRN Reason: PAIN SCALE 3 TO 5 Last Admin: 05/01/18 15:41 Dose: 1 tab Oxycodone/Acetaminophen (Percocet 5/325 Mg) 2 tab PO Q4H PRN PRN Reason: PAIN SCALE 6 TO 10 Last Admin: 05/02/18 03:27 Dose: 2 tab Vit/Calcium/Iron/Folic Ac (Stuartnatal Plus 3) 1 tab PO DAILY [facility] Last Admin: 05/01/18 09:27 Dose: 1 tab Senna/Docusate Sodium (Yashira-Colace) 1 tab PO BID [facility] Last Admin: 05/01/18 20:32 Dose: 1 tab Sennosides (Senokot) 17.2 mg PO Q12H PRN PRN Reason: Moderate Constipation Sodium Chloride (Ns Flush) 2 ml IV.FLUSH BID [facility] Last Admin: 04/30/18 21:00 Dose: 2 ml Sodium Chloride (Ns Flush) 2 ml IV.FLUSH PRN PRN PRN Reason: FLUSH AFTER USING IV ACCESS Witch Donya/Glycerin (Tucks Pads) 1 applicatio RECTAL QID PRN PRN Reason: HEMORRHOIDS Last Admin: 04/30/18 17:44 Dose: 1 applicatio Zolpidem Tartrate (Ambien) 5 mg PO HS PRN PRN Reason: SLEEP Assessment and Plan - Diagnosis (1) 39 weeks gestation of Code(s): Z3A.39 - 39 weeks gestation of Status: Acute (2) Gestational hypertension Code(s): O13.9 - Gestational [-induced] hypertension without significant proteinuria, unspecified trimester Status: Acute (3) Previous delivery affecting Code(s): O34.219 - Maternal care for unspecified type scar from previous delivery Status: Resolved - Plan 27-year-old 002 status post forceps-assisted at 39 weeks. 1. day #1: continue routine care, anticipate discharge home tomorrow. 05/02/18 09:30 unremarkable PPD 2 mom and baby ready for discharge counseled RTO 2 weeks to evaluate perineum and vault
[2018-05-02] MEDS: Senna/Docusate Sodium 8.6/50 MG Tablet PO SCH (10:33)
[2018-05-02] MEDS: Prenatal Vit/Ca/Iron/Folic Acid Tablet PO SCH (10:33)
[2018-05-02 11:06] VITALS: BP 119/79; PULSE 85; RESP 12; TEMP 98.3
== END 2018-05-02 15:18 | disposition home or self-care (01) ==
LOC: H2E 09:30 → H1EA 04-30 15:06
PROVIDERS: ADMIT Obstetrics & Gynecology; ATTEND Obstetrics & Gynecology

== ENCOUNTER 2018-05-04 19:02 | Inpatient (IN) ==
[2018-05-05] MEDS ORDERED: Acetaminophen 325 MG Tablet PO PRN (01:23)
--- NOTE | 2018-05-05 01:44 | P.HPIM ---
History of Present Illness Service: [facility] Primary Care Physician: UNKNOWN Chief Complaint: SOB History of Present Illness: 27-year-old female who is day #4 presented to the ED complaining of shortness of breath that increases when she lies down and takes breath. She states she also has chest tightness that is a intermittent, 8/10, worse with a deep breath. Prior to she had no medical history but at 39 weeks she developed preeclampsia and was induced. OB was Dr. Martinez. She also complains of some moderate amount of vaginal bleeding with some yellow discharge and she has gone through 6 pads today, upon arrival to the ER she was bradycardic in the mid 40s. No history of bradycardia. She denies any cough, fever, chills, sputum production. She is very swollen, 2+ edema in lower extremities. Inpatient Certification: I certify that the inpatient services were ordered in accordance with Medicare regulations governing the order. This includes certification that hospital inpatient services are reasonable and necessary and in the case of services not specified as inpatient-only under 42 CFR 419.22(n), that they are appropriately provided as inpatient services in accordance to with the 2-midnight benchmark under 43 CFR 412.3(e) Estimated Total Length of Stay (Days): 3 Plans for Post Hospital Care: Home Review of Systems All other systems reviewed negative except as stated in HPI [facility] - History History Provided By: Patient - Medical History Medical History: Medical History (Last Reviewed 05/05/18 @ 02:51 by AKI Johnson) No active medical problems - Surgical History Surgical History: Surgical History (Last Reviewed 05/05/18 @ 02:51 by AKI Johnson) H/O: - Family History Family History: Family History (Last Reviewed 05/05/18 @ 02:51 by AKI Johnson) Other Family history normal - Social History I have reviewed the patient's Social History: Yes - Tobacco History Second Hand Smoke Exposure: No Tobacco Use In Past 30 Days: No Smoking Status: Never smoker - Alcohol History How Often Do You Have a Drink Containing Alcohol: Monthly or less - Substance Use History Substance History: No History of Abuse Medications and Allergies Active Medications: Active Medications Acetaminophen (Tylenol) 650 mg PO Q6H PRN PRN Reason: PAIN 1-10 AND/OR FEVER >101F Albuterol (Duoneb Neb (Isac)) 1 ampul NEB Q6HR NEB ISAC Chlorhexidine Gluconate (Chlorhexidine 2% Cloth) 3 pack TOPICAL DAILY@0400 IS[facility] Stop: 05/10/18 03:59 Chlorhexidine Gluconate (Chlorhexidine 2% Cloth) 3 pack TOPICAL DAILY@0400 PRN PRN Reason: Extra cloth needed Stop: 05/10/18 03:59 Azithromycin 500 mg/ Sodium (Chloride) 250 mls @ 250 mls/hr IV.SIG Q24H [facility] Ceftriaxone Sodium 1,000 mg/ (Sodium Chloride) 100 mls @ 200 mls/hr IV.SIG Q24H [facility] Ondansetron HCl (Zofran Inj) 4 mg IV.PUSH Q6H PRN PRN Reason: NAUSEA OR VOMITING Sodium Chloride (Ns Flush) 2 ml IV.FLUSH PRN PRN PRN Reason: FLUSH AFTER USING IV ACCESS Sodium Chloride (Ns Flush) 2 ml IV.FLUSH BID IS[facility] Allergies Allergy/AdvReac Type Severity Reaction Status Date / Time No Known Allergies Allergy Verified 04/29/18 11:30 Home Medications Medication Instructions Recorded Confirmed Type Calcium 500 1 tab PO DAILY 04/29/18 05/04/18 History ferrous sulfate [Iron (ferrous 1 tab PO DAILY 04/29/18 05/04/18 History sulfate)] vit-iron fum-folic ac 1 tab PO DAILY 04/29/18 05/04/18 History [ Vitamin] Exam Vital signs: Intake & Output 05/04/18 05/04/18 05/05/18 06:59 18:59 06:59 Weight 85.7 kg Other: Weight On Admission 85.7 kg Narrative: GENERAL: This is a well-nourished, well-developed patient, who appears painful with deep breaths SKIN: Warm, dry, intact, no ecchymosis or open lesions EYES: Pupils equal round and reactive, no scleral edema or drainage CARDIOVASCULAR: Regular rate and rhythm without murmurs, gallops, or rubs. RESPIRATORY: Diminished breath sounds throughout, no wheezing GASTROINTESTINAL: Abdomen soft, non-tender, nondistended. Normal active bowel sounds MUSCULOSKELETAL: 2+ edema in lower extremities. NEURO: Alert & Oriented x4 to person, place, time, situation. Moves all ext x4 Caprini VTE Risk Assessment Caprini VTE Risk Assessment: No/Low Risk (score <= 1) Caprini Risk Assessment Model: Point Value = 1 Point Value = 2 Point Value = 3 Point Value = 5 Age 41-60 Minor surgery BMI > 25 kg/m2 Swollen legs Varicose veins or History of unexplained or recurrent spontaneous Oral contraceptives or hormone replacement Sepsis (< 1 month) Serious lung disease, including pneumonia (< 1 month) Abnormal pulmonary function Acute myocardial infarction Congestive heart failure (< 1 month) History of inflammatory bowel disease Medical patient at bed rest Age 61-74 Arthroscopic surgery Major open surgery (> 45 min) Laparoscopic surgery (> 45 min) Malignancy Confined to bed (> 72 hours) Immobilizing plaster cast Central venous access Age >= 75 History of VTE Family history of VTE Factor V Leiden Prothrombin [id number] Lupus anticoagulant Anticardiolipin antibodies Elevated serum homocysteine Heparin-induced thrombocytopenia Other congenital or acquired thrombophilia Stroke (< 1 month) Elective arthroplasty Hip, pelvis, or leg fracture Acute spinal cord injury (< 1 month) Prophylaxis Regimen: Total Risk Factor Score Risk Level Prophylaxis Regimen 0-1 Low Early ambulation 2 Moderate Order ONE of the following: *Sequential Compression Device (SCD) *Heparin 5000 units SQ BID 3-4 Higher Order ONE of the following medications: *Heparin 5000 units SQ TID *Enoxaparin/Lovenox 40 mg SQ daily (WT < 150 kg, CrCl > 30 mL/min) *Enoxaparin/Lovenox 30 mg SQ daily (WT < 150 kg, CrCl > 10-29 mL/min) *Enoxaparin/Lovenox 30 mg SQ BID (WT < 150 kg, CrCl > 30 mL/min) AND/OR *Sequential Compression Device (SCD) 5 or more Highest Order ONE of the following medications: *Heparin 5000 units SQ TID (Preferred with Epidurals) *Enoxaparin/Lovenox 40 mg SQ daily (WT < 150 kg, CrCl > 30 mL/min) *Enoxaparin/Lovenox 30 mg SQ daily (WT < 150 kg, CrCl > 10-29 mL/min) *Enoxaparin/Lovenox 30 mg SQ BID (WT < 150 kg, CrCl > 30 mL/min) AND *Sequential Compression Device (SCD) Assessment and Plan - Plan Pleural effusion likely due to cardiomyopathy Chest CT shows a moderate right and small left pleural effusions -Lasix x1 given -2D echo ordered Pneumonia Chest x-ray reviewed and shows a partially consolidated infiltrate in the right middle lobe -IV antibiotics Rocephin and azithromycin -Duo nebs UTI, patient had fischer 4 days ago with delivery Urine shows moderate leukocyte esterase with increased WBC -Continue IV antibiotics -Urine culture ordered Vaginal bleeding, secondary to delivery HGb 10.7--8.2 -Monitor hemoglobin -Transfuse if needed -cont home iron supplements DVT prophylaxis: SCDs Discussed Condition With: Patient and PT H&P: Quality - VTE Deep Vein Thrombosis/Pulmonary Embolism Present on Admission: No
[2018-05-05] MEDS: Azithromycin Inj 500 MG in Sodium Chlor 0.9% Inj 250 ML IV.SIG SCH (01:55)
[2018-05-05] MEDS ORDERED: Chlorhexidine Gluconate 2% 1 Pack (2 Cloths) TOPICAL PRN (04:00)
[2018-05-05 04:44] LABS: Baso % (Auto) 0.3 % (0.0-2.0); Eos # (Auto) 0.1 th/mm3 (0.0-0.4); Eos % (Auto) 1.8 % (0.0-4.0); Hematocrit 24.4 % (35.0-46.0); Hemoglobin 8.1 gm/dL (11.6-15.3); Lymph # (Auto) 1.1 th/mm3 (1.0-4.8); Lymph % (Auto) 16.7 % (9.0-44.0); Mean Corpuscular HGB Conc 33.4 % (32.0-36.0); Mean Corpuscular Hemoglobin 28.4 pg (27.0-34.0); Mean Corpuscular Volume 85.1 fL (80.0-100.0); Mean Platelet Volume 9.6 fL (7.0-11.0); Mono # (Auto) 0.3 th/mm3 (0.0-0.9); Mono % (Auto) 4.9 % (0.0-8.0); Neut % (Auto) 76.3 % (16.0-70.0); Platelet Count 222 th/mm3 (150-450); Red Blood Count 2.86 mil/mm3 (4.00-5.30); Red Cell Distribution Width 14.5 % (11.6-17.2); White Blood Count 6.5 th/mm3 (4.0-11.0)
[2018-05-05 05:39] LABS: Anion Gap 10 meq/L (5-15); Blood Urea Nitrogen 15 mg/dL (7-18); Carbon Dioxide 24.7 meq/L (21.0-32.0); Chloride 108 meq/L (98-107); Glomerular Filtration Rate Greater Than 89 mL/min (>89); Glucose,Random 90 mg/dL (74-106); Potassium 4.2 meq/L (3.5-5.1); Sodium 143 meq/L (136-145)
[2018-05-05] MEDS: Chlorhexidine Gluconate 2% 1 Pack (2 Cloths) TOPICAL SCH (06:46)
[2018-05-05] MEDS: Ferrous Sulfate 325 MG Tablet PO SCH (09:11)
--- NOTE | 2018-05-05 13:06 | MB ---
cc: Perry Damon MD DATE: 05/05/2018 REASON FOR CONSULTATION: Probable cardiomyopathy/acute systolic congestive heart failure. HISTORY OF PRESENT ILLNESS: The patient is a very pleasant 27-year-old woman who had an essentially normal delivery about a week ago of her second child. She says she did have some mild preeclampsia during the . Over the last couple of days, she has had worsening shortness of breath and lower extremity edema to the point where she really could not breathe at all, and presented emergently to the emergency department, found to be in congestive heart failure. She was given Lasix and has felt better. Currently, the patient is resting comfortably in bed. She says she feels much better since she has diuresed, no residual shortness of breath. She had some pleuritic chest discomfort, which has improved. No lightheadedness, dizziness or syncope. PAST MEDICAL HISTORY: Essentially normal with the exception of some mild preeclampsia, and was induced due to this at 39 weeks. She had done fine since discharge until about 2-3 days ago, which she began having significantly worsening shortness of breath and lower extremity edema to the point where she could not breathe at all and presented emergently to [place], where she was found to be in congestive heart failure and she was admitted with presumptive peripartum cardiomyopathy. An echocardiogram is pending. Since she has diuresed, she feels much better without any residual symptoms. Her shortness of breath and pleuritic chest pain have improved notably. PAST MEDICAL HISTORY: As above. CURRENT MEDICATIONS: 1. Tylenol. 2. IV Lasix. ALLERGIES: NO KNOWN DRUG ALLERGIES. PHYSICAL EXAMINATION: VITAL SIGNS: Afebrile, pulse 46, respiratory rate 26, BP 160/76, saturating 91 on room air. GENERAL: A very pleasant woman in no distress. NECK: No JVD. LUNGS: Clear to auscultation bilaterally. CARDIOVASCULAR: Regular rate and rhythm. No murmurs appreciated. ABDOMEN: Benign. EXTREMITIES: No edema. LABORATORY DATA: White count 6.5, hematocrit 24.4, platelets 222. Sodium 143, potassium 4.2, chloride 108, bicarbonate 24.7, BUN 15, creatinine 0.67. There are reports of CT scan showing pleural effusion, but it is not showing up for me in the electronic medical record. Apparently chest x-ray also showed possible right middle lobe infiltrate, again this is not available in my imaging folder. ASSESSMENT AND PLAN: Acute systolic congestive heart failure. The patient most likely has some degree of peripartum cardiomyopathy and acute systolic congestive heart failure as she has responded nicely to diuretics. I will start her on Entresto for now, with this assumption. I will hold off on the beta belkys given her marked bradycardia, but would ideally like to begin this at some point in the near future. Further recommendations will be based on her echocardiogram. I will keep her on IV Lasix for another day or so, as well. Thank you again for the opportunity to participate in this patient's care. MD HUMBERTO Preston/lyndsay , 11:36 AM , 11:44 AM
[2018-05-05] MEDS: Prenatal Vit/Ca/Iron/Folic Acid Tablet PO SCH (13:44)
--- NOTE | 2018-05-05 17:15 | ECHRPT ---
Indication: HEART FAILURE CONCLUSIONS The left ventricular systolic function is low normal with an estimated ejection fraction in the rang e of 50- 55%. Normal left ventricular size. Wall thickness is normal. No regional wall motion abnormalities are present. Mild thickening of the mitral valve leaflets. Sytvq-ni-[id number] mitral valve regurgitation. Trivial pulmonary valve regurgitation. BP: / HR: Rhythm: Sinus MEASUREMENTS (Male / Female) Normal Values Technical Quality:Good 2D ECHO LV Diastolic Diameter PLAX 5.3 cm 4.2 - 5.9 / 3.9 - 5.3 cm LV Systolic Diameter PLAX 3.4 cm IVS Diastolic Thickness 0.7 cm 0.6 - 1.0 / 0.6 - 0.9 cm LVPW Diastolic Thickness 0.7 cm 0.6 - 1.0 / 0.6 - 0.9 cm LV Relative Wall Thickness 0.3 LVOT Diameter 1.8 cm LA Systolic Diameter LX 3.6 cm 3.0 - 4.0 / 2.7 - 3.8 cm LV Ejection Fraction MOD 4C 65.0 % LV Ejection Fraction 4C AL 66.3 % M-MODE Aortic Root Diameter MM 1.6 cm LA Systolic Diameter MM 3.6 cm LA Ao Ratio MM 2.3 AV Cusp Separation MM 1.8 cm DOPPLER AV Peak Velocity 129.0 cm/s AV Peak Gradient 6.7 mmHg LVOT Peak Velocity 112.0 cm/s LVOT Peak Gradient 5.0 mmHg AV Area Cont Eq pk 2.2 cm MV Area PHT 4.9 cm Mitral E Point Velocity 123.0 cm/s Mitral A Point Velocity 34.1 cm/s Mitral E to A Ratio 3.6 LV E' Lateral Velocity 15.8 cm/s Mitral E to LV E' Lateral Ratio 7.8 LV E' Septal Velocity 9.6 cm/s Mitral E to LV E' Septal Ratio 12.9 PV Peak Velocity 100.0 cm/s PV Peak Gradient 4.0 mmHg FINDINGS LEFT VENTRICLE The left ventricular systolic function is low normal with an estimated ejection fraction in the rang e of 50- 55%. Normal left ventricular size. Wall thickness is normal. No regional wall motion abnormalities are present. RIGHT VENTRICLE Normal right ventricular size and systolic function. LEFT ATRIUM The left atrial size is normal. RIGHT ATRIUM The right atrial size is normal. ATRIAL SEPTUM Normal atrial septal thickness without atrial level shunting by limited color doppler interrogation. AORTA The aortic root and proximal ascending aorta are normal in size on limited imaging. MITRAL VALVE Mild thickening of the mitral valve leaflets. Fumpo-il-oqrc mitral valve regurgitation. AORTIC VALVE Trileaflet aortic valve. No aortic valve stenosis or regurgitation. TRICUSPID VALVE Structurally normal tricuspid valve. No tricuspid valve stenosis or regurgitation. PULMONARY VALVE Trivial pulmonary valve regurgitation. VESSELS The inferior vena cava is normal in size. PERICARDIUM Trace pericardial effusion. Perry Damon MD (Electronically Signed) Final Date:05 May 2018 17:14
--- NOTE | 2018-05-05 17:48 | P.PNADD ---
Addendum to Inpatient Note Reason for Addendum: Additional Documentation Additional information: 27-year-old female admitted for fluid overload related to dilated cardiomyopathy. She was seen at bedside this morning and her questions were answered. More specifically 1 of her questions involved whether or not she could breast-feed while on her current medications. It seems that furosemide is category C when it comes to breast-feeding, lacing it in the unsafe category for sharing breastmilk with an infant. Cardiology was consulted and visited in a timely manner, medication adjustments were made and their intervention is appreciated.
[2018-05-06] MEDS: Azithromycin Inj 500 MG in Sodium Chlor 0.9% Inj 250 ML IV.SIG SCH (02:15)
[2018-05-06] MEDS: Chlorhexidine Gluconate 2% 1 Pack (2 Cloths) TOPICAL SCH (03:29)
[2018-05-06 06:03] VITALS: TEMP 98.2
--- NOTE | 2018-05-06 08:07 | P.PN ---
Subjective Interval history: Pt doing better, breathing improved though still on O2, echo shows near normal LVEF. Physical Exam Vital signs: Vital Signs 05/05/18 09:00 05/05/18 10:00 05/05/18 11:00 Temperature Pulse Rate 45 L 48 L 43 L Respiratory Rate 25 H 28 H 25 H Blood Pressure 167/88 H 169/74 H Pulse Oximetry 90 L 88 L 89 L 05/05/18 11:01 05/05/18 11:21 05/05/18 12:00 Temperature 98.1 F Pulse Rate 46 L 45 L Respiratory Rate 27 H 26 H 26 H Blood Pressure 160/76 H 159/75 H Pulse Oximetry 91 L 95 05/05/18 13:00 05/05/18 14:00 05/05/18 14:01 Temperature Pulse Rate 50 L 54 L 50 L Respiratory Rate 29 H 27 H 32 H Blood Pressure 171/85 H 172/70 H 172/70 H Pulse Oximetry 88 L 87 L 88 L 05/05/18 14:53 05/05/18 15:00 05/05/18 15:59 Temperature Pulse Rate 49 L 49 L Respiratory Rate 20 27 H 24 Blood Pressure 148/70 H Pulse Oximetry 97 90 L 05/05/18 16:00 05/05/18 17:00 05/05/18 18:00 Temperature 98.2 F Pulse Rate 49 L 51 L 46 L Respiratory Rate 25 H 26 H 27 H Blood Pressure 154/79 H 157/76 H 152/74 H Pulse Oximetry 91 L 88 L 90 L 05/05/18 19:00 05/05/18 20:00 05/05/18 20:51 Temperature 98.3 F Pulse Rate 47 L 51 L Respiratory Rate 27 H 33 H Blood Pressure 159/75 H 161/77 H Pulse Oximetry 95 96 99 05/05/18 21:00 05/05/18 22:00 05/05/18 23:00 Temperature 98.3 F 98.3 F 98.3 F Pulse Rate 82 48 L 45 L Respiratory Rate 28 H 25 H 22 Blood Pressure 150/106 H 134/64 131/63 Pulse Oximetry 82 L 97 97 05/06/18 00:00 05/06/18 01:00 05/06/18 02:00 Temperature 98.6 F 98.6 F 98.3 F Pulse Rate 45 L 47 L 47 L Respiratory Rate 22 21 23 Blood Pressure 153/76 H 153/85 H 144/70 H Pulse Oximetry 97 95 95 05/06/18 03:00 05/06/18 04:00 05/06/18 05:00 Temperature 98.2 F 97.3 F L 98.3 F Pulse Rate 46 L 51 L 49 L Respiratory Rate 22 17 16 Blood Pressure 141/78 H 127/74 137/75 Pulse Oximetry 95 96 97 05/06/18 06:00 Temperature 98.2 F Pulse Rate 47 L Respiratory Rate 19 Blood Pressure 150/75 H Pulse Oximetry 100 Intake & Output 05/05/18 05/06/18 05/06/18 18:59 06:59 18:59 Intake Total 1305 / 1305 1040 / 1040 Output Total 2200 / 2200 3500 / 3500 Balance -895 / -895 -2460 / -2460 Weight 79.7 kg Intake: IV 350 / 350 Azithromycin Inj 500 MG In NS 250 / 250 Inj 250 ML @ 250 mls/hr IV.SIG Q24H KEARA Rx#:[id number] Rocephin Inj 1,000 MG In NS Inj 100 / 100 100 ML @ 200 mls/hr IV.SIG Q24H KEARA Rx#:[id number] Oral 1305 / 1305 690 / 690 Output: Urine 2200 / 2200 3500 / 3500 Stool 0 / 0 0 / 0 Urine/Stool Mix 0 / 0 0 / 0 Other: Post Void Residual 0 # Voids 3 1 Date of Last Bowel Movement 05/05/18 05/05/18 # Bowel Movements 0 0 # Incontinent Bowel Movements 0 0 - Constitutional no acute distress - Routine HEENT Exam Head: Present: normocephalic Eye: Present: EOMI ENT: Present: mucous membranes moist - Routine Neck Exam Absent: JVD - Routine Cardiovascular Exam Present: RRR. Absent: murmur - Routine Extremities Exam Present: edema - Routine Neurological Exam Present: oriented X3 Results - Labs CBC & Chem 7: 05/05/18 04:17 05/05/18 04:17 Assessment and Plan - Plan CHF, possibly acute diastolic, given essentially normal LVEF by echo; will give her one shot of IV lasix today as seems just a bit fluid overloaded.; given preserved lvef, no indication for entresto so will change to losartan. Ok to d/ c to floor from cardiac standpoint Rec oob, weaning off o2
[2018-05-06] MEDS: Ferrous Sulfate 325 MG Tablet PO SCH (09:58)
[2018-05-06] MEDS: Prenatal Vit/Ca/Iron/Folic Acid Tablet PO SCH (09:59)
--- NOTE | 2018-05-06 10:43 | P.DS ---
Date of admission: 05/05/18 00:06 Primary care physician: UNKNOWN Brief History from admission: 27-year-old female who is day #4 presented to the ED complaining of shortness of breath that increases when she lies down and takes breath. She states she also has chest tightness that is a intermittent, 8/10, worse with a deep breath. Prior to she had no medical history but at 39 weeks she developed preeclampsia and was induced. OB was Dr. Martinez. She also complains of some moderate amount of vaginal bleeding with some yellow discharge and she has gone through 6 pads today, upon arrival to the ER she was bradycardic in the mid 40s. No history of bradycardia. She denies any cough, fever, chills, sputum production. She is very swollen, 2+ edema in lower extremities. DS: Medications - Discharge Medications Prescriptions: azithromycin [Zithromax] 250 mg PO DAILY 4 Days #4 tab cephalexin 500 mg PO BID 2 Days #4 tab DS: Summary Hospital Course: 27-year-old female who presented to the ER with shortness of breath 4 days after induction delivery of a 39-week for preeclampsia. She additionally had a complaint of excessive vaginal bleeding and yellowish discharge, urinalysis showed urinary tract infection. On presentation her lower extremities were 2+ edema and chest x-ray showed bilateral pleural effusions, echocardiogram was ordered to investigate for possible cardiomegaly related to preeclampsia and stress of delivery. Echocardiogram results came back with an ejection fraction of 50-55%. Cardiology was consulted and agreed with treatment plan of diuresis and possible addition of beta-belkys if needed at a later date. Patient diuresed quite efficiently and today her legs and ankles are back to normal, lung sounds are near normal with some atelectatic sounds in bases. She is breathing comfortably on room air and ambulating. She is tolerating meals well. Her baby had a fever last night and she is very motivated to go home to be with her child. She is requesting a discharge and from my standpoint she appears stable for discharge at this time. Recommended she follow-up with Dr. Butler her transit planner in the next week. Of also recommended that she follow-up with Dr. Damon for her follow-up care regarding her mild reduction in ejection fraction. I am sending her home with 2 more days of cephalosporin for coverage of urinary tract infection, and 4 more days of azithromycin to cover for bronchitis versus early pneumonia. - Time Spent with Patient Total time spent providing and/or coordinating discharge services: Less than 30 minutes - Quality: VTE Deep Vein Thrombosis/Pulmonary Embolism Present on Admission: No Exam Vital signs: Vital Signs 05/05/18 11:00 05/05/18 11:01 05/05/18 11:21 Temperature Pulse Rate 43 L 46 L Respiratory Rate 25 H 27 H 26 H Blood Pressure 160/76 H Pulse Oximetry 89 L 91 L 05/05/18 12:00 05/05/18 13:00 05/05/18 14:00 Temperature 98.1 F Pulse Rate 45 L 50 L 54 L Respiratory Rate 26 H 29 H 27 H Blood Pressure 159/75 H 171/85 H 172/70 H Pulse Oximetry 95 88 L 87 L 05/05/18 14:01 05/05/18 14:53 05/05/18 15:00 Temperature Pulse Rate 50 L 49 L Respiratory Rate 32 H 20 27 H Blood Pressure 172/70 H 148/70 H Pulse Oximetry 88 L 97 05/05/18 15:59 05/05/18 16:00 05/05/18 17:00 Temperature 98.2 F Pulse Rate 49 L 49 L 51 L Respiratory Rate 24 25 H 26 H Blood Pressure 154/79 H 157/76 H Pulse Oximetry 90 L 91 L 88 L 05/05/18 18:00 05/05/18 19:00 05/05/18 20:00 Temperature 98.3 F Pulse Rate 46 L 47 L 51 L Respiratory Rate 27 H 27 H 33 H Blood Pressure 152/74 H 159/75 H 161/77 H Pulse Oximetry 90 L 95 96 05/05/18 20:51 05/05/18 21:00 05/05/18 22:00 Temperature 98.3 F 98.3 F Pulse Rate 82 48 L Respiratory Rate 28 H 25 H Blood Pressure 150/106 H 134/64 Pulse Oximetry 99 82 L 97 05/05/18 23:00 05/06/18 00:00 05/06/18 01:00 Temperature 98.3 F 98.6 F 98.6 F Pulse Rate 45 L 45 L 47 L Respiratory Rate 22 22 21 Blood Pressure 131/63 153/76 H 153/85 H Pulse Oximetry 97 97 95 05/06/18 02:00 05/06/18 03:00 05/06/18 04:00 Temperature 98.3 F 98.2 F 97.3 F L Pulse Rate 47 L 46 L 51 L Respiratory Rate 23 22 17 Blood Pressure 144/70 H 141/78 H 127/74 Pulse Oximetry 95 95 96 05/06/18 05:00 05/06/18 06:00 05/06/18 07:00 Temperature 98.3 F 98.2 F Pulse Rate 49 L 47 L 48 L Respiratory Rate 16 19 Blood Pressure 137/75 150/75 H Pulse Oximetry 97 100 05/06/18 09:00 Temperature Pulse Rate 57 L Respiratory Rate Blood Pressure Pulse Oximetry Intake & Output 05/05/18 05/06/18 05/06/18 18:59 06:59 18:59 Intake Total 1305 / 1305 1040 / 1040 Output Total 2200 / 2200 3500 / 3500 Balance -895 / -895 -2460 / -2460 Weight 79.7 kg Intake: IV 350 / 350 Azithromycin Inj 500 MG In NS 250 / 250 Inj 250 ML @ 250 mls/hr IV.SIG Q24H KEARA Rx#:[id number] Rocephin Inj 1,000 MG In NS Inj 100 / 100 100 ML @ 200 mls/hr IV.SIG Q24H KEARA Rx#:[id number] Oral 1305 / 1305 690 / 690 Output: Urine 2200 / 2200 3500 / 3500 Stool 0 / 0 0 / 0 Urine/Stool Mix 0 / 0 0 / 0 Other: Post Void Residual 0 # Voids 3 1 Date of Last Bowel Movement 05/05/18 05/05/18 # Bowel Movements 0 0 # Incontinent Bowel Movements 0 0 Results Procedures completed during hospitalization: none Discharge Plan - Discharge Disposition Patient Disposition: Discharge Home - Discharge Condition Condition: Good - Discharge Order Discharge Orders: Discharge Order (Routine); Ordered 05/06/18 Ordered By: Israel Cisneros - Physicians Team Primary Care Provider: UNKNOWN, Attending Provider: Israel Cisneros Other Providers: Perry Damon MD - Rxs /Orders / Referrals /Forms Prescriptions: New azithromycin [Zithromax] 250 mg Tablet 250 mg PO DAILY 4 Days Qty: 4 RF: 0 cephalexin 500 mg Tablet 500 mg PO BID 2 Days Qty: 4 RF: 0 Continue ferrous sulfate [Iron (ferrous sulfate)] 325 mg (65 mg iron) Tablet 1 tab PO DAILY Discontinued vit-iron fum-folic ac [ Vitamin] 27 mg iron- 0.8 mg Tablet 1 tab PO DAILY No Action Calcium 500 1 tab PO DAILY Referrals: Perry Damon MD [Physician] - See Instructions (2 weeks) Razia Martinez MD [OBSTETRICS & GYNECOLOGY] - See Instructions (1 week) UNKNOWN, [Primary Care Provider] - See Instructions
[2018-05-06 11:58] VITALS: BP 118/77; PULSE 73; RESP 20; O2SAT 86
--- NOTE | 2018-05-06 15:02 | ECG ---
Date Performed: 05/05/2018 Time Performed: 13:42:03 PTAGE: 27 years EKG: SINUS BRADYCARDIA BORDERLINE ECG NO PREVIOUS TRACING DOCTOR: Gary Merrill Interpretating Date/Time 05/06/2018 15:00:02
== END 2018-05-06 12:30 | disposition home or self-care (01) ==
LOC: NEDDLT 19:02 → HIMC 05-05 00:06
PROVIDERS: ADMIT Family Medicine; ATTEND Family Medicine